=== PATIENT | male | born 1955 | race Caucasian/White ===

== ENCOUNTER 2018-01-27 22:14 | Inpatient (IN) | payer BC ==
[2018-01-27] MEDS ORDERED: NS 0.9% 1000 ML* 1,000 ML IV ONE (22:43)
[2018-01-27] MEDS ORDERED: HYDROmorphone INJ* 2 MG/ML CARPUJECT SYRINGE IV SLOW PU ONE (22:45)
[2018-01-27] MEDS ORDERED: Ondansetron INJ* 2 MG/ML VIAL IV ONE (22:45)
[2018-01-27 23:20] LABS: ABS Basophils 0 10^3/ul (0-0.2); ABS Eosinophils 0.1 10^3/ul (0-0.6); ABS Lymphocytes 0.7 10^3/ul (1.0-4.8); ABS Monocytes 1.1 10^3/ul (0-0.8); ABS Neutrophils 15.1 10^3/ul (1.5-7.7); ABS Nucleated RBC 0 10^3/ul; Eosinophil % 0.5 % (0-6); Hematocrit 42 % (42-52); Hemoglobin 13.8 g/dl (14.0-18.0); Lymphocyte % 4.1 % (25-47); Mean Corpuscular HGB Conc 33 g/dl (31-36); Mean Corpuscular Hemoglobin 28 pg (27-31); Mean Corpuscular Volume 84 fL (80-94); Nucleated Red Blood Cells % 0; Platelet Count 237 10^3/ul (150-450); Red Blood Count 5.01 10^6/ul (4.0-5.4); Red Cell Distribution Width 15 % (10.5-15)
[2018-01-27 23:28] LABS: INR 1.48 (0.77-1.02)
[2018-01-27 23:32] LABS: EGFR Non-African American 63.4 (>60)
[2018-01-27] MEDS ORDERED: Iodixanol* (CONTRAST) 320 MG/ML 100 ML SDV IV ONE (23:39)
[2018-01-28] MEDS ORDERED: Piperacillin/Tazobac ADVAN(*) 3.375 GM in NS 0.9% 100 ML* 100 ML IVPB ONE (01:06)
[2018-01-28] MEDS ORDERED: Benzocaine/Butamben/Tetracain* SPRAY ONE (01:07)
[2018-01-28] MEDS ORDERED: Zosyn 3.375 GM IV - ED ONCE IVPB ONE ×2 (02:00)
[2018-01-28] MEDS ORDERED: Morphine VIAL* 4 MG/ML VIAL (1 ml vial) IV PRN (02:41)
[2018-01-28] MEDS ORDERED: Ondansetron INJ* 2 MG/ML VIAL IV PRN ×2 (03:01→19:13)
--- NOTE | 2018-01-28 03:34 | ED ---
Jerson Pickens Tecjoon, scribed for Emi Vazquez MD on 01/27/18 at 2245 . Abdominal Pain/Male - HPI Summary HPI Summary: This patient is a 62 year old male BIBA to [facility] with a chief complaint of nausea and vomiting since approx. 1600 today. The pain is rated 6/10 in severity. Symptoms aggravated by nothing. Symptoms alleviated by nothing. The patient treated sx with Zofran WINDOW GLAZIER HELPER. Patient additionally reports abd pain, diarrhea, constipation. Patient denies fever. Patient has a hx of colon cancer. - History of Current Complaint Chief Complaint: EDAbdPain Stated Complaint: ABD PAIN/CHEST PRESSURE Time Seen by Provider: 01/27/18 22:27 Hx Obtained From: Patient Onset/Duration: Lasting Hours, Still Present Timing: Constant Severity Currently: Moderate Pain Intensity: 6 Pain Scale Used: 0-10 Numeric Location: Diffuse Aggravating Factor(s): Nothing Alleviating Factor(s): Nothing Associated Signs And Symptoms: Positive: Negative - fever, Other - abd pain, nausea, vomiting, diarrhea, constipation - Allergies/Home Medications Allergies/Adverse Reactions: Allergies Allergy/AdvReac Type Severity Reaction Status Date / Time No Known Allergies Allergy Verified 07/21/15 10:38 PMH/Surg Hx/FS Hx/Imm Hx Previously Healthy: No Endocrine/Hematology History: Denies: Hx Anticoagulant Therapy, Hx Diabetes, Hx Thyroid Disease Cardiovascular History: Reports: Hx Angina, Hx Hypercholesterolemia - not currently, Hx Hypertension Denies: Hx Coronary Artery Disease, Hx Myocardial Infarction, Hx Pacemaker/ ICD, Hx Valvular Heart Disease Respiratory History: Denies: Hx Asthma, Hx Chronic Obstructive Pulmonary Disease (COPD) GI History: Reports: Hx Gastroesophageal Reflux Disease Denies: Hx Cirrhosis, Hx Gall Bladder Disease, Hx Ulcer History: Denies: Hx Renal Disease Musculoskeletal History: Reports: Hx Back Problems Denies: Hx Gout Comment Only: 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 Sensory History: Reports: Hx Contacts or Glasses - reading glasses Opthamlomology History: Reports: Hx Contacts or Glasses - reading glasses Neurological History: Denies: Hx Dementia, Hx Migraine, Hx Seizures, Hx Spinal Cord Injury Psychiatric History: Denies: Hx Substance Abuse - Cancer History Cancer Type, Location and Year: Colon Cancer - Surgical treatment no chemo or radiation Hx Chemotherapy: No Hx Radiation Therapy: No - Surgical History Surgery Procedure, Year, and Place: 2011 colon resection Hx Anesthesia Reactions: No Infectious Disease History: No Infectious Disease History: Denies: Hx Clostridium Difficile, Hx Hepatitis, Hx Human Immunodeficiency Virus (HIV), History Other Infectious Disease, Traveled Outside the [place] in Last 30 Days - Family History Known Family History: Positive: Other - brother bypass surgery (late 60s) - Social History Alcohol Use: Rare Alcohol Amount: 1-2 mix drinks occassionally Hx Substance Use: No Substance Use Type: Reports: None Hx Tobacco Use: Yes Smoking Status (MU): Current Some Day Smoker Type: Cigarettes Have You Smoked in the Last Year: Yes Review of Systems Negative: Fever Positive: Abdominal Pain, Vomiting, Diarrhea, Nausea, Other - constipation All Other Systems Reviewed And Are Negative: Yes Physical Exam - Summary Physical Exam Summary: VITAL SIGNS: Reviewed. GENERAL: Patient is a morbidly obese male who is lying comfortable in the stretcher. Patient is not in any acute respiratory distress. HEAD AND FACE: No signs of trauma. No ecchymosis, hematomas or skull depressions. No sinus tenderness. EYES: PERRLA, EOMI x 2, No injected conjunctiva, no nystagmus. EARS: Hearing grossly intact. Ear canals and tympanic membranes are within normal limits. MOUTH: Oropharynx within normal limits. NECK: Supple, trachea is midline, no adenopathy, no JVD, no carotid bruit, no c- spine tenderness, neck with full ROM. CHEST: Symmetric, no tenderness at palpation LUNGS: Clear to auscultation bilaterally. No wheezing or crackles. CVS: Regular rate and rhythm, S1 and S2 present, no murmurs or gallops appreciated. ABDOMEN: Abd distended. Diffusely tender. Hyperactive bowel sounds. EXTREMITIES: FROM in all major joints, no edema, no cyanosis or clubbing. NEURO: Alert and oriented x 3. No acute neurological deficits. Speech is normal and follows commands. SKIN: Dry and warm Triage Information Reviewed: Yes Vital Signs On Initial Exam: Initial Vitals Temp Pulse Resp BP Pulse Ox 97.8 F 59 18 139/56 95 01/27/18 22:24 01/27/18 22:24 01/27/18 22:24 01/27/18 22:24 01/27/18 22:24 Vital Signs Reviewed: Yes Diagnostics - Vital Signs Vital Signs Temp Pulse Resp BP Pulse Ox 04/02/18 22:24 97.8 F 59 18 139/56 95 - Laboratory Result Diagrams: 01/27/18 22:58 01/27/18 22:58 Lab Statement: Any lab studies that have been ordered have been reviewed, and results considered in the medical decision making process. - CT CT Abd/Pel CT Interpretation: Positive (See Comments) - CT Abd/Pel reveals, per radiologist , IMPRESSION: Small bowel obstruction. Smaller vental hernias. ED physician has reviewed this radiology report. CT Interpretation Completed By: Radiologist - EKG 0316 Cardiac Rate: NL EKG Rhythm: Sinus Rhythm - 67 BPM EKG Interpretation: NSR (67 BPM), t-wave inversion in anteroseptal leads, which is old. Abdominal Pain Fem Course/Dx - Course Course Of Treatment: This patient is a 62 year old male BIBA to [facility] with a chief complaint of nausea and vomiting since approx. [address] Abd/Pel reveals, per radiologist, IMPRESSION: Small bowel obstruction. Smaller vental hernias. ED physician has reviewed this radiology report. An EKG, taken 315, reveals, NSR (67 BPM), t-wave inversion in anteroseptal leads, which is old. Bloodwork Obtained. Urinalysis Obtained. In the ED course the patient was given Hydromophone, Iodixanol, Zofran, Piperacillin. We discussed patient care with Dr. Hansen (Surgery) at 0123 and they agreed to come see the patient. Patient will be admitted to the hospital to Dr. Hansen (Surgery) with a diagnosis of Ventral hernia and small bowel obstruction. The patient is agreeable with this plan. - Diagnoses Provider Diagnoses: Ventral hernia, Small bowel obstruction - Provider Notifications Discussed Care Of Patient With: Cyril Hansen - Surgery Time Discussed With Above Provider: 01:23 - We discussed patient care with Dr. Hansen (Surgery) at 0123 and they agreed to come see the patient. Instructed by Provider To: Admit As Inpatient - to Dr. Hansen (Surgery) Discharge - Sign-Out/Discharge Documenting (check all that apply): Discharge - admitted - Discharge Plan Condition: Stable Disposition: ADMITTED TO [facility] The documentation as recorded by the Jerson coon Tecjoon accurately reflects the service I personally performed and the decisions made by , Emi Vazquez MD.
[2018-01-28] MEDS ORDERED: Metoprolol Tartrate IV* 1 MG/ML 5 ML VIAL IV PRN (03:40)
[2018-01-28] MEDS: NS 0.9% 1000 ML* 1,000 ML IV SCH ×2 (03:42→10:30)
[2018-01-28] MEDS: Pantoprazole IV* 40 MG IV SCH (04:24)
[2018-01-28] MEDS: Insulin REGULAR(*) 1 UNITS UNIT SUBCUT SCH ×3 (05:27→22:53)
[2018-01-28 05:35] LABS: ABS Basophils 0 10^3/ul (0-0.2); ABS Eosinophils 0 10^3/ul (0-0.6); ABS Lymphocytes 0.8 10^3/ul (1.0-4.8); ABS Monocytes 0.7 10^3/ul (0-0.8); ABS Nucleated RBC 0 10^3/ul; Eosinophil % 0.2 % (0-6); Hematocrit 39 % (42-52); Hemoglobin 12.8 g/dl (14.0-18.0); Lymphocyte % 5.5 % (25-47); Mean Corpuscular HGB Conc 33 g/dl (31-36); Mean Corpuscular Hemoglobin 28 pg (27-31); Mean Corpuscular Volume 84 fL (80-94); Nucleated Red Blood Cells % 0.1; Platelet Count 217 10^3/ul (150-450); Red Blood Count 4.62 10^6/ul (4.0-5.4); Red Cell Distribution Width 15 % (10.5-15); White Blood Count 14.6 10^3/ul (3.5-10.8)
[2018-01-28 05:43] LABS: INR 1.3 (0.77-1.02)
[2018-01-28 05:54] LABS: EGFR Non-African American 69.6 (>60)
[2018-01-28 07:44] LABS: Urine Appearance Clear; Urine Blood Negative (Negative); Urine Color Yellow; Urine Ketones Negative (Negative); Urine Protein Negative (Negative); Urine Specific Gravity > 1.060 (1.010-1.030); Urine Urobilinogen Negative (Negative)
--- NOTE | 2018-01-28 08:00 | RAD ---
Indication: Dyspnea. 2 views of the chest demonstrate no mediastinal shift. Heart is enlarged. Hyperinflated lung lu are noted. No evidence of alveolar consolidation is noted. Cardiomegaly is noted. When compared to previous exam of October 13, 2015 no significant change is noted. IMPRESSION: CARDIOMEGALY. NO ACTIVE CARDIOPULMONARY DISEASE IS NOTED.
--- NOTE | 2018-01-28 08:08 | RAD ---
INDICATION: Abdominal pain. COMPARISON: There are no prior studies available for comparison. TECHNIQUE: A CT scan of the abdomen and pelvis was performed with intravenous and oral contrast following intravenous injection of 141 ml of Visipaque 320 nonionic contrast. Contiguous axial sections were obtained from the lung bases through the symphysis pubis. Images were reconstructed in the coronal and sagittal planes. FINDINGS: There is mild dependent bilateral lower lobe subsegmental atelectasis. No pleural effusion is present. The liver and spleen are normal in size without significant focal abnormality. The liver is decreased in attenuation consistent with fatty infiltration. No calcified gallstones are seen. The pancreas appears to be within normal limits. The kidneys and adrenal glands are normal in size. No hydronephrosis is seen. There are couple small 1 to 2 mm calculi within the right kidney. There are focal areas of cortical thinning in the right kidney consistent with scarring. There are small hypodense lesions within both kidneys too small to characterize by CT although likely representing cysts. The prostate gland is moderately enlarged. The aorta is normal in caliber with moderate calcific plaque present. No significant enlarged retroperitoneal lymph nodes are seen. There is a ventral hernia containing dilated loops of small bowel present in the midline causing a moderate grade partial small bowel obstruction. The stomach and proximal small bowel are distended. The distal esophagus is also distended with fluid consistent with reflux and the obstruction. There are additional smaller ventral hernias containing fat. These are located superior to the larger hernia containing small bowel. The patient is status post resection of the ascending and part of the transverse colon. There is mild descending and sigmoid diverticulosis without evidence for diverticulitis. No free intraperitoneal air or fluid is seen. No significant focal osseous abnormality is seen. IMPRESSION: 1. MODERATE GRADE PROXIMAL SMALL BOWEL OBSTRUCTION SECONDARY TO A VENTRAL HERNIA CONTAINING DILATED LOOPS OF SMALL BOWEL. THERE ARE ADDITIONAL SMALLER VENTRAL HERNIAS CONTAINING FAT. 2. SMALL NONOBSTRUCTING RIGHT RENAL CALCULI AND AREAS OF CORTICAL SCARRING IN THE RIGHT KIDNEY. 3. HEPATIC STEATOSIS. 4. STATUS POST PARTIAL COLECTOMY.
--- NOTE | 2018-01-28 08:37 | HP ---
CC: [facility]; Dr. Israel, cardiology; Dr. Henao, [place], [place] * HISTORY AND PHYSICAL: DATE OF : 51 DATE OF SURGERY: 01/28/18 REASON FOR ADMISSION: Ventral incisional hernia with small bowel obstruction. HISTORY OF PRESENT ILLNESS: Mr. Neal Garcia is a 62-year-old gentleman, who is morbidly obese, who presented to the emergency room this evening after being brought by ambulance for complaints of upper abdominal pain with nausea and vomiting. He underwent an open right hemicolectomy five years ago in [place] for a right colon cancer, and has had a ventral incisional hernia there for the last several years which he notices a bulge. He states that over the last several days, the bulge has been somewhat more firm and tender, although he had been eating well and having normal bowel movements. Earlier this morning, he developed some upper abdominal pain, also pain up into the left chest area which was worrisome all day. Later in the afternoon, however, he developed excessive amount of burping and subsequently vomiting. When this persisted and his pain was more severe, he called the ambulance and was brought here to the emergency room. While here in the emergency room, he was noted to be afebrile with stable vital signs. He was noted to have some mild upper abdominal tenderness. His white blood cell count was 17,000; otherwise, his labs were unremarkable including a lactic and C-reactive protein. His BUN and creatinine were normal as well. He underwent a CAT scan of the abdomen and pelvis; I did review these images. These do show a ventral incisional hernia in the lower portion of the upper midline incision containing small bowel. There does appear to be a transition zone at the level of the fascia where there is proximal small bowel dilated and distal small bowel was collapsed. He has undergone a right hemicolectomy in the past. There were no other acute findings. This did not appear to be a closed loop type of obstruction in the hernia itself. A surgical consultation was obtained. PAST MEDICAL HISTORY: 1. Atrial fibrillation. 2. Mild coronary artery disease. 3. Type 2 diabetes. 4. Morbid obesity. 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 6. Gastroesophageal reflux disease. MEDICATIONS: Include 1. Glipizide 10 mg daily. 2. Xarelto 20 mg a day. 3. Omeprazole 40 mg daily. 4. Metoprolol 100 mg daily. 5. Losartan/hydrochlorothiazide one tablet daily. 6. Glucophage 500 mg b.i.d. 7. Lasix 40 mg daily. 8. Atorvastatin 20 mg q.h.s. 9. Aspirin 81 mg daily. 10. Amlodipine 10 mg daily. ALLERGIES: He has no known drug allergies. PAST SURGICAL HISTORY: Open right hemicolectomy for colon cancer done in [place]. I do not have these operative records or pathology results. SOCIAL HISTORY: He lives alone. He is presently not working. He used to be a smoker, but has not completely quit, and may have a cigarette every several days. He drinks alcohol on a very rare social basis. REVIEW OF SYMPTOMS: His colonoscopy was done last year with Dr. Medel and was unremarkable, showing a widely patent anastomosis. Cardiac: He denies chest pain. He does have atrial fibrillation. He had a cardiac catheterization in 2014 which showed minimal noncritical coronary artery disease. Pulmonary: He has had no wheezing or hemoptysis. Does have sleep apnea. GI: Gastroesophageal reflux disease. PHYSICAL EXAMINATION VITAL SIGNS: He is afebrile, temperature 97.8, pulse 63, blood pressure 129/47 , respirations are 15. GENERAL: He is morbidly obese. Height 6 feet 4 inches, weight 330 pounds, BMI 40. In general, he is a well-developed, overweight male who appears to be in no apparent distress. He is quite alert, conversive and pleasant. HEENT: Oral mucosa is somewhat dry. Sclera was anicteric. Trachea was midline. LUNGS: Clear to auscultation with diminished breath sounds at the bases. HEART: Regular rate and rhythm. ABDOMEN: Obese with a rather large pannus below the umbilicus. The upper abdominal wall appears to have a less fat deposition. He has a well-healed midline incision, all above the umbilicus and about a palm's breadth below the xiphoid. The area over the incision is nontender, and I cannot appreciate a fascial defect; however, due to his size, I am not certain whether there is hernia which is present or has it been reduced. This is nontender and there is no overlying skin change or redness. Bowel sounds were hypoactive throughout. EXTREMITIES: No cyanosis or edema. LABORATORY DATA: As mentioned above, laboratory values include a white blood cell count of 17 with hemoglobin of 13.8. INR of 1.48. Electrolytes and BUN and creatinine were within normal limits. Blood sugar 168, lactic acid 1.8, C- reactive protein 7.1. His liver transaminases and bilirubin were unremarkable. I did review the CT scan of the abdomen and pelvis. IMPRESSION: 1. Small bowel obstruction which is due to a long-standing ventral incision hernia status post a right hemicolectomy for colon cancer. His stomach was markedly distended and fluid filled on the CT scan. A nasogastric tube has been inserted; at least a liter of bilious fluid was drained, and he feels much better, having no pain at this point. It is difficult to determine the fascial defect location, and also if the hernia is reducible due to his size. His exam presently is benign and nontender. No evidence of peritoneal irritation. 2. Multiple medical problems as outlined above, including atrial fibrillation. The patient is on Xarelto, but he took his last dose Saturday. PLAN: 1. The patient will be admitted to the surgical service with medical hospitalist consultation and possible cardiology consultation. 2. A nasogastric tube has been inserted and this will be placed to low-wall suction, and he will be kept n.p.o. 3. Medical consultation for management of his medications. Also, formal risk assessment for surgery. 4. I reviewed with him the findings on the CAT scan; and, in combination with his clinical presentation, I feel that this will require a laparotomy for complete reduction of the ventral incisional hernia and lysis of adhesions with hernia repair this admission to optimally manage the bowel obstruction. At this point, I do not believe that he has signs of ischemia or has an internal hernia. We will allow for NG tube decompression, IV hydration, and medical evaluation, and plan for surgery sometime Saturday01/28/18. [id number]/[facility] #: [id number] COLLEEN
--- NOTE | 2018-01-28 09:20 | CONS ---
CC: Dr. Shaquille Henao. * CONSULTATION REPORT: DATE OF CONSULT: 01/28/18 TIME OF EVALUATION: 0300. PRIMARY CARE PHYSICIAN: Dr. Shaquille Henao. REASON FOR CONSULTATION: Medical management and evaluation for preoperative evaluation. CHIEF COMPLAINT: Abdominal pain. HISTORY OF PRESENT ILLNESS: This is a 62-year-old male with a past medical history of morbid obesity and diabetes who presents to the emergency room with abdominal pain and indigestion that started yesterday after he had a late lunch around 3 p.m. He has been having persistent nausea, vomiting. He states he has been feeling like he needed to have bowel movements, but only having small amount of stools and they have been watery. In the emergency room, he was found to have a small bowel obstruction secondary to an incisional hernia. Dr. Hansen was called and he is admitting him and plans to do surgery later today and would like a Medicine evaluation. The patient denies any chest pain, no shortness of breath. He states he had a stress test many years ago; he is not sure how long ago. 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 He states he often has to sit down due to his back pain. He goes up and down a flight of stairs without any chest pain or shortness of breath. The patient, in the emergency room, had labs and imaging. He was given a liter of normal saline, Zosyn, Zofran, Dilaudid, and had an NG tube placed, and was admitted under the surgical service. PAST MEDICAL HISTORY: 1. History of colon cancer, status post resection in 2011. 2. Atrial fibrillation, on Xarelto, followed by Dr. Israel. 3. History of nonobstructive coronary artery disease. 4. Diabetes. 5. Morbid obesity. 6. Obstructive sleep apnea, noncompliant, has CPAP. 7. History of ventral hernia. 8. GERD. 9. Hypertension. MEDICATIONS: 1. Metformin 500 mg p.o. b.i.d. 2. Xarelto 20 mg p.o. daily. 3. Atorvastatin 20 mg daily. 4. Glipizide 10 mg daily. 5. Metoprolol XL 25 mg daily. 6. Omeprazole 40 mg daily. 7. Aspirin 81 mg daily. 8. Losartan 50 mg daily. 9. Amlodipine 10 mg daily. 10. Lasix 40 mg daily. ALLERGIES: No known drug allergies. SOCIAL HISTORY: The patient is on disability due to his back pain. He used to work at [employer], now he owns horses; and, as mentioned, works in cleaning the stables. He does smoke about a pack over a month, for the past 40 years. Rare alcohol use. Healthcare proxy is his sister, Chelsea, and daughter, Mya Garcia. CODE STATUS: Full code. REVIEW OF SYSTEMS: A 14-point review of systems as mentioned in the HPI, otherwise negative. FAMILY HISTORY: No family history of early coronary artery disease. PHYSICAL EXAM: Vitals: Temp 97.8, pulse rate 66, respiratory rate 15, oxygen saturation 95% on room air, blood pressure 129/47. General: No acute distress , resting comfortably. HEENT: Head, normocephalic. Pupils are equal and reactive. Oropharynx: Mucous membranes moist. NG tube in place. Cardiac: Regular rate and rhythm. Soft, systolic murmur heard throughout. Respiratory: Diminished breath sounds. No wheeze, rhonchi, or rales. No increased work of breathing. Abdomen: Morbidly obese, tenderness in the right lower quadrant. No rebound or guarding. Extremities: Trace pretibial edema. +1 DPs. Neurologic: Alert and oriented x3. No focal neurologic deficits. DIAGNOSTIC STUDIES/LAB DATA: White count 17, hemoglobin 13.8, hematocrit 42, and platelets 237. INR 1.48. Sodium 140, potassium 4.4, chloride 103, bicarb 27, BUN 23, creatinine 1.16, glucose 167. CRP is 7, mag is 1.9. Radiographic data: EKG shows inverted T-waves in the lateral leads, unchanged from prior EKGs. Chest x-ray, wet read unremarkable. ASSESSMENT AND PLAN: This is a 62-year-old male with a past medical history of atrial fibrillation, on anticoagulation, diabetes and morbid obesity who presents to the emergency room with nausea, vomiting and abdominal pain, found to have a bowel obstruction secondary to an incisional hernia. The patient is being evaluated for surgery and hospitalist service consulted for medication management and preoperative evaluation. The patient's revised cardiac risk index is a 1, which is 1% to 1.3% chance of mortality and morbidity. There is no contraindication with proceeding with surgery. He last took his Xarelto dose on the evening of the first. His INR is slightly elevated. I would recommend repeating that in the morning; did continue to hold his Xarelto and his aspirin. We will order a chest x-ray in the setting of his tobacco history, and recommend incentive spirometer postoperatively. Regarding his hypertension, his blood pressures are currently well controlled. We will order a Lopressor IV as needed in the setting of being n.p.o. Regarding his diabetes, we will place him on a lispro sliding scale while he is n.p.o. and check hemoglobin A1C. He has been resumed on IV Protonix while he is n.p.o. as well. DVT prophylaxis per Surgery's recommendation; he does score moderate risk. Code status, full code. TIME SPENT: Greater than 45 minutes spent doing this consultation, more than half the time spent in direct patient contact. [id number]/[facility] #: [id number] COLLEEN
[2018-01-28] MEDS ORDERED: Bupivacaine 0.25% SDV* 30 ML ONE (13:45)
[2018-01-28] MEDS ORDERED: Sodium Citrate/Citric Acid* 15 ML UDC PO ONE (13:49)
[2018-01-28] MEDS ORDERED: ceFAZolin 1 GM in Dextrose (*) 1 GM/50 ML BAG IVPB ONE (13:55)
[2018-01-28] MEDS ORDERED: Sodium Citrate/Citric Acid* 15 ML UDC ONE (13:55)
[2018-01-28] MEDS ORDERED: ceFAZolin 2 GM PREMIX (*) 2 GM/50 ML BAG IVPB ONE (13:55)
[2018-01-28] MEDS ORDERED: Lidocaine 4% TOPICAL* 50 ML TOP.SOLN ONE (14:05)
[2018-01-28] MEDS ORDERED: Lidocaine 1%* 5 ML VIAL ONE (14:06)
[2018-01-28] MEDS ORDERED: fentaNYL* 50 MCG/ML 5 ML VIAL (250 MCG VIAL) ONE (14:12)
[2018-01-28] MEDS ORDERED: Glycopyrrolate IV* 0.2 MG/ML 1 ML VIAL ONE ×2 (14:12→18:04)
[2018-01-28] MEDS ORDERED: Midazolam* 1 MG/ML 5 ML VIAL (5 MG) ONE (14:12)
[2018-01-28] MEDS ORDERED: Propofol* 10 MG/ML 20 ML BTL IV PUSH ONE (14:12)
[2018-01-28] MEDS ORDERED: Rocuronium* 10 MG/ML VIAL ONE ×2 (14:14→16:57)
[2018-01-28] MEDS ORDERED: EPHEDrine (Pressors)* 50 MG/ML VIAL ONE (15:17)
[2018-01-28] MEDS ORDERED: fentaNYL* 50 MCG/ML 2 ML VIAL (100 MCG VIAL) ONE ×4 (15:45→19:33)
--- NOTE | 2018-01-28 15:49 | PN ---
Hospitalist Progress Note Date of Service: 01/28/18 HOSPITALIST ADDENDUM Mr. Garcia is a 62yo M with PMH of colon CA s/p resection, CAD, Afib, DM, morbid obesity, HALI, GERD, HTN, ventral hernia, who presented to ED with c/o abdominal pain, found to have SBO secondary to his incisional hernia. Continue pre op management as outlined on Dr. Pathak's consultation. Hospitalist service will continue to follow with you.
[2018-01-28] MEDS ORDERED: Acetaminophen IV 1GM/100ML * 1,000 MG/100 ML VIAL IVPB ONE (16:28)
[2018-01-28] MEDS ORDERED: PROCHLORPERAZINE INJ 5 MG/ML 2 ML VIAL IV PRN (16:28)
[2018-01-28] MEDS ORDERED: Naloxone* 0.4 MG/ML 1 ML VIAL IV PRN (16:28)
[2018-01-28] MEDS ORDERED: Ondansetron INJ* 2 MG/ML VIAL ONE (17:22)
[2018-01-28] MEDS ORDERED: Neostigmine Methylsulfate* 1 MG/ML 10 ML VIAL (1 mg/ml) ONE (18:04)
[2018-01-28] MEDS ORDERED: Labetalol IV* 5 MG/ML 20 ML VIAL ONE ×2 (18:07→20:34)
[2018-01-28] MEDS ORDERED: Naloxone* 0.4 MG/ML 1 ML VIAL IV PUSH PRN (18:20)
[2018-01-28] MEDS ORDERED: Acetaminophen IV 1GM/100ML * 100 ML ONE (18:29)
[2018-01-28] MEDS ORDERED: Ketorolac INJ* 30 MG/ML 1 ML VIAL ONE (19:03)
[2018-01-28] MEDS: fentaNYL* 50 MCG/ML 2 ML VIAL (100 MCG VIAL) IV PRN ×4 (19:14→20:05)
[2018-01-28] MEDS ORDERED: HYDROmorphone PCA* 20 MG/20 ML PCA.SYRING PCA SCH (20:00)
[2018-01-28] MEDS ORDERED: HYDROmorphone PCA* 20 MG/20 ML PCA.SYRING ONE (20:00)
[2018-01-28] MEDS: Heparin VIAL(*) 5000 UNITS/ML VIAL (FIVE THOUSAND) SUBCUT SCH (23:09)
[2018-01-29] MEDS: Insulin REGULAR(*) 1 UNITS UNIT SUBCUT SCH ×3 (00:23→12:05)
[2018-01-29] MEDS: Ketorolac INJ* 30 MG/ML 1 ML VIAL IV SCH ×4 (01:48→19:22)
[2018-01-29] MEDS: Pantoprazole IV* 40 MG IV SCH (04:06)
[2018-01-29 05:43] LABS: INR 1.18 (0.77-1.02)
[2018-01-29 05:55] LABS: EGFR Non-African American 83.9 (>60)
[2018-01-29] MEDS: Heparin VIAL(*) 5000 UNITS/ML VIAL (FIVE THOUSAND) SUBCUT SCH ×3 (05:57→22:49)
[2018-01-29] MEDS ORDERED: oxyCODONE/Acetamin 5/325 MG* TAB PO PRN (11:05)
[2018-01-29] MEDS ORDERED: Acetaminophen TAB* 325 MG PO PRN (11:05)
--- NOTE | 2018-01-29 14:36 | PN ---
Subjective Date of Service: 01/29/18 Interval History: HOSPITALIST PROGRESS NOTE Patient seen and examined at bedside. He feels well today. Pain is controlled, tolerating clear liquids with no N/V. No BM or flatus. Family History: Unchanged from Admission Social History: Unchanged from Admission Past Medical History: Unchanged from Admission Objective Active Medications: Acetaminophen (Tylenol Tab*) 650 mg PO Q4H PRN PRN Reason: mild pain Heparin Sodium (Porcine) (Heparin Vial(*)) 5,000 units SUBCUT Q8HR [facility] Last Admin: 01/29/18 13:16 Dose: 5,000 units Lactated Ringer's (Lactated Ringers 1000 Ml Bag*) 1,000 mls @ 175 mls/hr IV PER RATE [facility] Last Admin: 01/29/18 13:16 Dose: 175 mls/hr Hydromorphone HCl (Dilaudid Automotive Specialty Technician*) 20 mg in 20 mls @ 0 mls/hr SCALE OPERATOR .change Q24H [facility]; Per Protocol PRN Reason: Protocol Last Admin: 01/28/18 20:01 Dose: 0.2 mls/hr Insulin Human Regular (Insulin Regular(*)) 0 units SUBCUT Q6HR [facility] PRN Reason: Protocol Last Admin: 01/29/18 12:05 Dose: Not Given Ketorolac Tromethamine (Toradol Inj*) 30 mg IV Q6H [facility] Stop: 01/30/18 19:00 Last Admin: 01/29/18 13:16 Dose: 30 mg Metoprolol Tartrate (Lopressor Iv*) 5 mg IV Q6H PRN PRN Reason: BLOOD PRESSURE Naloxone HCl (Narcan*) 0.08 mg IV PUSH Q2M PRN PRN Reason: SEDATION (RR<8 &/OR PT UNRESP) Ondansetron HCl (Zofran Inj*) 4 mg IV Q4H PRN PRN Reason: NAUSEA/VOMITING Oxycodone/Acetaminophen (Percocet 5/325 Tab*) 1 tab PO Q4H PRN PRN Reason: moderate pain Oxycodone/Acetaminophen (Percocet 5/325 Tab*) 2 tab PO Q4H PRN PRN Reason: moderately severe pain Pantoprazole Sodium (Protonix Iv*) 40 mg IV Q24H [facility] Last Admin: 01/29/18 04:06 Dose: 40 mg Vital Signs - 8 hr 01/29/18 01/29/18 01/29/18 11:37 12:00 13:34 Temperature 99.1 F Pulse Rate 80 Respiratory 20 18 16 Rate Blood Pressure 142/58 (mmHg) O2 Sat by Pulse 95 97 96 Oximetry Oxygen Devices in Use Now: Nasal Cannula Appearance: Morbid obese male sitting up in bed in NAD. Eyes: No Scleral Icterus Ears/Nose/Mouth/Throat: Mucous Membranes Moist Neck: Trachea Midline Respiratory: Symmetrical Chest Expansion and Respiratory Effort, - - BS+ bilaterally decreased in bases Cardiovascular: RRR - Normal S1 and S2 Neurological: Alert and Oriented x 3 Result Diagrams: 01/28/18 04:53 01/29/18 05:02 Assess/Plan/Problems-Billing Assessment: Mr. Garcia is a 62yo M with PMH of morbid obesity with BMI 40, Afib, CAD, DM, GERD, colon CA s/p resection (Pratt syndrome), HALI, who presented to ED with c/ o abdominal pain, found to have SBO secondary to ventral hernia. Hospitalist service consulted for management of comorbidities. - Patient Problems (1) SBO (small bowel obstruction) Comment: - Management as per surgery. (2) Type 2 diabetes mellitus Comment: - Glucose controlled. - Continue FS with Lispro SS. (3) Atrial fibrillation Comment: - Sounds regular on PE and EKG showed NSR. - Will resume Xarelto when okay with surgery and Metoprolol when able to take PO. (4) CAD (coronary artery disease) Comment: - Stable. - Will resume Aspirin, Metoprolol, Atorvastatin when able to take PO meds. (5) DVT prophylaxis Comment: - SQ heparin. (6) Full code status Status and Disposition: Hospitalist service will continue to follow with you.
[2018-01-29] MEDS ORDERED: Dextrose 50% Syringe 50 ML* 25 GM/50 ML SYRINGE IV PUSH PRN (14:38)
--- NOTE | 2018-01-29 15:14 | OP ---
CC: Shaquille Henao MD * DATE OF OPERATION: 01/28/18 - ROOM #333 DATE OF : 51 SURGEON: Dm Cornejo MD ASSISTANTS: 1. Shaquille Gill MD 2. Malinda Lance NP ANESTHESIOLOGIST: Yovani Armijo MD ANESTHESIA: General endotracheal. PRE-OP DIAGNOSIS: Ventral incisional hernia with small-bowel obstruction. POST-OP DIAGNOSIS: Ventral incisional hernia with small-bowel obstruction. OPERATIVE PROCEDURE: Open reduction and repair of incarcerated ventral incisional hernia with laparoscopic placement of intraperitoneal mesh. ESTIMATED BLOOD LOSS: 50 mL. IV FLUIDS: 2.3 L crystalloid. SPECIMEN: Hernia sac. DRAINS: 7-mm Rian-Lewis in the subcutaneous tissues. COMPLICATIONS: None. COUNTS: Instrument, needle, sponge counts were correct. DESCRIPTION OF PROCEDURE: The patient was brought to the operating room and placed on table supine. Sequential compression devices were placed on both lower extremities. General anesthesia was administered. He was administered appropriate intravenous antibiotics, prepped and draped in the usual sterile fashion. Time-out was performed. Midline incision was created through the previous upper midline scar. Subcutaneous tissues were divided with combination of cautery and sharp dissection to enter a hernia sac with incarcerated portions of omental fat, which were taken down using combination of sharp dissection and cautery. There was a defect of approximately 6 x 6 cm in the lower portion of the upper midline wound as well as a small defect in the umbilical side and multiple smaller defects ranging from 1-cm to 4-cm defect that was at the superior aspect of the incision. In order to complete the repair, it was determined that primary closure of the large defect would be performed and then intraperitoneal mesh placement will be performed laparoscopically. After completing adhesiolysis of the contents from the sac, the sac was excised with cautery. The defect was closed with interrupted #1 Prolene suture in figure-of-8 fashion in simple interrupted fashion. Prior to tying down the sutures, a piece of Ventralight mesh with Echo positioning system was placed intraperitoneally. This was an 8 x 10 inch piece of mesh. After tying down the sutures, a 5-mm trocar, which had previously been placed in the left abdomen was used to insufflate the abdomen and then additional 5-mm trocars were placed, one additional in the left side of the abdomen and two additional in the right side of abdomen. The mesh had been prepared with 4 sutures of 0 Ethibond at the 4 mid points of the mesh and these were drawn up through the abdominal wall using an Endo Close device to position the mesh, centering it over the defect as well as with the use of the Echo positioning system. The mesh was then secured with a series of CapSure tacks that were placed in the double-crown fashion, 1-cm interval circumferentially for the outer layer and interspersed within the inner layer. Additional tacks to decrease any space. The mesh appeared to be in good position. The positioning system was cut and removed and hemostasis was assured. The midline wound was irrigated and closed in layers with 3-0 Vicryl to the subcutaneous tissue. Prior to this, a 7-mm Rian-Lewis drain was placed through the separate stab wound incision, brought out the right side and placed into the area of a large subcutaneous space where the sac had been. Subsequently, the wounds were closed with tayo. Dressings were applied. The patient tolerated the procedure well, was extubated, and transferred to Recovery in stable condition. [id number]/[facility] #: [id number] COLLEEN
[2018-01-29] MEDS: Insulin LISPRO* 1 UNITS UNIT SUBCUT SCH (17:55)
--- NOTE | 2018-01-29 18:23 | PN ---
Progress Note - Progress Note Date of Service: 01/29/18 Note: Surgery Progress: S: POD #1. Patient seen earlier this a.m., ~ 1000. At that time, pain controlled w/ TUNE UP MECHANIC and toradol (mostly hurts when he gets up to move). Denies N/ V. Feels some "rumbling". No flatus or BM. Would like Herrera out. O: Vital Signs - 8 hr 01/29/18 01/29/18 01/29/18 11:37 12:00 13:34 Temperature 99.1 F Pulse Rate 80 Respiratory 20 18 16 Rate Blood Pressure 142/58 (mmHg) O2 Sat by Pulse 95 97 96 Oximetry 01/29/18 01/29/18 15:09 16:00 Temperature 97.9 F Pulse Rate 72 Respiratory 16 18 Rate Blood Pressure 160/70 (mmHg) O2 Sat by Pulse 97 96 Oximetry Intake and Output Last 24 Hours 01/27/18 01/28/18 01/29/18 01/30/18 06:59 06:59 06:59 06:59 Intake Total 75 4991 2130 Output Total 175 2605 385 Balance -100 2386 1745 Weight 330 lb Intake: IV Fluids 4631 980 ANCEF 3GMS 100 LR 3551 980 NS (0.9%) 980 Oral 75 360 1150 Output: NG Tube Drainage Amount 175 1150 EZEQUIEL #1 160 60 Urine 0 750 Herrera 545 325 Other: # Bowel Movements 0 Gen: NAD Heart: reg Lungs: clear Abd: midline dsg w/ mod amt sang drainage; no sig drainage at lap sites; BS normoactive; soft; no sig tenderness to palp; Binder in place; EZEQUIEL: serosang Extr: no edema A: s/p combination open/laparoscopic repair incarcerated ventral hernia, doing well P: d/c NG and Herrera; clear liq diet; po pain meds. Adv diet and resume usual meds when further GI fct.
[2018-01-30] MEDS: Ketorolac INJ* 30 MG/ML 1 ML VIAL IV SCH ×2 (01:32→07:50)
[2018-01-30] MEDS: Pantoprazole IV* 40 MG IV SCH (04:02)
[2018-01-30 05:43] LABS: EGFR Non-African American 93.3 (>60)
[2018-01-30] MEDS: Heparin VIAL(*) 5000 UNITS/ML VIAL (FIVE THOUSAND) SUBCUT SCH ×3 (06:24→21:05)
[2018-01-30] MEDS: Insulin LISPRO* 1 UNITS UNIT SUBCUT SCH ×3 (07:50→17:36)
[2018-01-30] MEDS ORDERED: Magnesium Sulfate 2 GM IV* 2 GM/50 ML BAG IVPB ONE (08:00)
[2018-01-30] MEDS ORDERED: KCL 10 MEQ/50 ML IVPREMIX* 10 MEQ/50 ML BAG IV SCH (08:00)
[2018-01-30] MEDS ORDERED: Ibuprofen TAB* 600 MG PO PRN (08:22)
[2018-01-30] MEDS ORDERED: HYDROmorphone INJ* 2 MG/ML CARPUJECT SYRINGE IV SLOW PU PRN ×2 (08:27→08:28)
[2018-01-30] MEDS ORDERED: Potassium Chloride IV* 30 MEQ in NS 0.9% 250 ML* 250 ML IVPB ONE (08:30)
--- NOTE | 2018-01-30 09:20 | PN ---
Progress Note - Progress Note Date of Service: 01/30/18 Note: Surgery Progress: S: POD #2. Feeling better. Less pain. Mir clears; would like to advance. No flatus or BM, though feels gas moving. Ambulating. No SOB (did have decreased sats overnight, which he attributes to his untreated HALI). O: Vital Signs - 8 hr 01/30/18 01/30/18 01/30/18 01:39 02:38 04:08 Temperature Pulse Rate 77 Respiratory 15 18 Rate Blood Pressure (mmHg) O2 Sat by Pulse 95 94 96 Oximetry 01/30/18 01/30/18 01/30/18 04:13 06:28 07:17 Temperature 98.0 F 98.1 F Pulse Rate 76 73 Respiratory 16 16 18 Rate Blood Pressure 180/61 167/62 (mmHg) O2 Sat by Pulse 100 96 97 Oximetry 01/30/18 01/30/18 07:41 07:42 Temperature Pulse Rate Respiratory 18 18 Rate Blood Pressure (mmHg) O2 Sat by Pulse 95 95 Oximetry Intake and Output Last 24 Hours 01/28/18 01/29/18 01/30/18 01/31/18 06:59 06:59 06:59 06:59 Intake Total 75 4991 7803 Output Total 175 2605 1705 Balance -100 2386 6098 Weight 330 lb Intake: IV Fluids 4631 3843 ANCEF 3GMS 100 LR 3551 3843 NS (0.9%) 980 Oral 75 360 3960 Output: NG Tube Drainage Amount 175 1150 EZEQUIEL #1 160 120 Urine 0 750 1260 Herrera 545 325 Other: Estimated Void Medium # Bowel Movements 0 0 Gen: sitting up in chair; NAD Heart: reg Lungs: clear Abd: midline incision w/ mod amt serosang drainage; EZEQUIEL w/ serous drainage; +BS; soft; min tenderness to palp; other lap sites ok Extr: no edema Labs: Laboratory Tests 01/29/18 01/29/18 01/29/18 05:50 11:55 16:49 Potassium Glucose POC Glucose (mg/dL) 141 H 141 H 133 H Magnesium 01/30/18 04:52 Potassium 3.4 L Glucose 133 H POC Glucose (mg/dL) Magnesium 1.8 L A: s/p repair incarc ventral hernia, doing well P: adv diet; po meds; hypomagnesmia and hypokalemia addressed by Dr. Ferguson; anticipate d/c home 01/31 (will d/w Dr. Cornejo; also re: resuming Xarelto).
[2018-01-30] MEDS: Aspirin EC TAB* 81 MG TAB.EC PO SCH (09:37)
[2018-01-30] MEDS: oxyCODONE/Acetamin 5/325 MG* TAB PO PRN ×2 (09:38→13:48)
[2018-01-30] MEDS: Metoprolol Succinate XL TAB* 25 MG PO SCH ×2 (09:38→21:04)
[2018-01-30] MEDS: Losartan TAB* 25 MG PO SCH (09:38)
[2018-01-30] MEDS: Omeprazole CAP* 20 MG PO SCH (09:39)
[2018-01-30] MEDS ORDERED: NS 0.9% 250 ML* 250 ML ONE (11:53)
--- NOTE | 2018-01-30 15:53 | PN ---
Hospitalist Progress Note Date of Service: 01/30/18 HOSPITALIST ADDENDUM Patient continues to make progress post op. Tolerating clear liquids. BP and glucose are controlled. If diet advanced, my resume his outpatient medications. Resume Xarelto as soon as surgery thinks it's okay. Hospitalist service will sign off. Please don't hesitate to call us with questions.
[2018-01-31] MEDS: oxyCODONE/Acetamin 5/325 MG* TAB PO PRN ×2 (00:42→07:35)
[2018-01-31 05:06] LABS: ABS Basophils 0 10^3/ul (0-0.2); ABS Eosinophils 0.2 10^3/ul (0-0.6); ABS Lymphocytes 1.1 10^3/ul (1.0-4.8); ABS Monocytes 0.5 10^3/ul (0-0.8); ABS Neutrophils 4.7 10^3/ul (1.5-7.7); ABS Nucleated RBC 0 10^3/ul; Eosinophil % 2.8 % (0-6); Hematocrit 32 % (42-52); Hemoglobin 10.5 g/dl (14.0-18.0); Mean Corpuscular HGB Conc 33 g/dl (31-36); Mean Corpuscular Hemoglobin 28 pg (27-31); Mean Corpuscular Volume 84 fL (80-94); Mean Platelet Volume 7.7 um3 (7.4-10.4); Nucleated Red Blood Cells % 0; Platelet Count 162 10^3/ul (150-450); Red Blood Count 3.76 10^6/ul (4.0-5.4); Red Cell Distribution Width 15 % (10.5-15); White Blood Count 6.4 10^3/ul (3.5-10.8)
[2018-01-31] MEDS: Heparin VIAL(*) 5000 UNITS/ML VIAL (FIVE THOUSAND) SUBCUT SCH (05:58)
[2018-01-31 07:33] VITALS: BP 168/76
[2018-01-31] MEDS: Metoprolol Succinate XL TAB* 25 MG PO SCH (07:36)
[2018-01-31] MEDS: Omeprazole CAP* 20 MG PO SCH (07:36)
[2018-01-31] MEDS: Aspirin EC TAB* 81 MG TAB.EC PO SCH (07:36)
[2018-01-31] MEDS: Losartan TAB* 25 MG PO SCH (07:37)
[2018-01-31] MEDS: Insulin LISPRO* 1 UNITS UNIT SUBCUT SCH (08:18)
--- NOTE | 2018-01-31 09:11 | PN ---
Progress Note - Progress Note Date of Service: 01/31/18 SOAP: Subjective:POD #3 s/p laparotomy repair of ventral hernia and laparoscopic placement of mesh;less pain,passing flatus,bessy advancing diet,wants to go home [] Objective:afeb,VSS;lungs:clear bilat;heart:RRR;abd:+bs,obese;midline incision intact with tayo,minimal serosang drainage,no erythema;EZEQUIEL drain removed with ease,exit site redressed with gauze pad;4x4's replaced over midline incision;ext :SCDs on [] Assessment:making good postop progress [] Plan:Discharge home today per Dr Cornejo;instructions reviewed;followup in office 1 week;resume Xarelto;RX for opioid sent []
--- NOTE | 2018-01-31 11:18 | DS ---
AMENDED REPORT NOW INCLUDES COSIGNER DESIGNATION - ESIGNED BEFORE ADJUSTMENTS CC: Dr. Henao * DISCHARGE SUMMARY: DATE OF ADMISSION: 01/27/18 DATE OF DISCHARGE: 01/31/18 ATTENDING PHYSICIAN: Dr. Dm Cornejo.* (DICTATED BY LOLA DAN NP) HOSPITAL COURSE: The patient is a 62-year-old morbidly obese male who presented to the emergency room on 01/27/18 with abdominal pain associated with nausea and vomiting; he has a longstanding history of ventral incisional hernia, status post right hemicolectomy for colon cancer. He had an elevated white blood count at 17 and a CAT scan of the abdomen and pelvis revealed an incarcerated ventral incisional hernia with small bowel obstruction. He has multiple medical problems including morbid obesity, atrial fibrillation, mild coronary artery disease, type 2 diabetes mellitus, GERD, and colon cancer with Pratt syndrome. Hospitalist consult was ordered for medical management and he was initially treated with nasogastric decompression and IV hydration. He was taken to the OR by Dr. Cornejo on 01/28/18, for open reduction and repair of incarcerated ventral incisional hernia with laparoscopic placement of intraperitoneal mesh. He has done well postoperatively and as of the morning of discharge was tolerating a consistent carbohydrate diet, pain was well controlled. He was voiding large amounts and passing flatus. PHYSICAL EXAMINATION: Vital Signs: Temp max 98.7, blood pressure 168/76, pulse 63 and regular, respiratory rate 20, O2 saturation 91% to 95%. He does have history of untreated obstructive sleep apnea. General: No acute distress , sitting up at the edge of the bed, eating breakfast. Lungs: Breath sounds bilaterally clear and equal. Heart: Regular rate and rhythm. No murmurs or rubs. Abdomen: Massively obese, active bowel sounds. Midline incision intact with surgical tayo. Moderate amount of serosanguineous drainage. No surrounding erythema; Rian-Lewis drain was removed with ease and 4x4s covered the exit site; all of the other laparoscopic sites were intact with surgical tayo, clean, and dry, no erythema. His abdomen is soft. Extremities : No significant edema. No skin ulcerations. IMPRESSION: Postop day 3 status post open reduction and repair of incarcerated ventral incisional hernia with laparoscopic placement of intraperitoneal mesh, doing very well. PLAN: Discharge home today. He will resume his usual Xarelto and all of his home medications; he will follow his usual consistent carbohydrate diet; he has an appointment in our office for followup on 02/06/18; all of his discharge instructions were reviewed and questions were answered; a prescription for oxycodone/acetaminophen was electronically transmitted to [facility] on [facility]. LOLA DAN, CORDUROY CUTTER OPERATOR [id number]/[facility] #: [id number] COLLEEN
== END 2018-01-31 11:25 | disposition home or self-care (01) | DRG 227 ==
LOC: ED 22:14 → SSU 01-28 02:37 → OBSVTOIN 01-29 11:04
PROVIDERS: ADMIT Surgery; ATTEND Internal Medicine
PROC: 0D9670Z Drainage of Stomach with Drainage Device, Via Natural or Artificial Opening (ICD-10-PCS; principal; 2018-01-28 12:30)
PROC: 0WUF0JZ Supplement Abdominal Wall with Synthetic Substitute, Open Approach (ICD-10-PCS; 2018-01-29)
DX: K43.0 Incisional hernia with obstruction, without gangrene (principal); Z68.41 Body mass index [BMI] 40.0-44.9, adult; E78.00 Pure hypercholesterolemia, unspecified; I10 Essential (primary) hypertension; K21.9 Gastro-esophageal reflux disease without esophagitis; F17.210 Nicotine dependence, cigarettes, uncomplicated; E66.01 Morbid (severe) obesity due to excess calories; I48.91 Unspecified atrial fibrillation; I25.10 Atherosclerotic heart disease of native coronary artery without angina pectoris; E11.9 Type 2 diabetes mellitus without complications; G47.33 Obstructive sleep apnea (adult) (pediatric); E87.6 Hypokalemia; E83.42 Hypomagnesemia; M54.9 Dorsalgia, unspecified; Z72.89 Other problems related to lifestyle; Z79.01 Long term (current) use of anticoagulants; Z90.49 Acquired absence of other specified parts of digestive tract; Z85.038 Personal history of other malignant neoplasm of large intestine; Z79.82 Long term (current) use of aspirin; Z79.84 Long term (current) use of oral hypoglycemic drugs
CPT/HCPCS: 36415; 71046; 74177; 80048; 80053; 81003; 82150; 83036; 83605; 83690; 83735; 85025; 85610; 85730; 86140; 88302; 93005; 99285; A9270-GY; C1781; G0378; J0690; J1170; J1644; J1885; J2250; J2405; J2543; J2704; J2710; J3010; J3475; J3480; Q9967

== ENCOUNTER 2018-11-23 10:04 | Inpatient (IN) | payer BC, MEDICARE, OTHER ==
--- NOTE | 2018-11-23 10:37 | ED ---
Palpitations / Dysrhythmia - HPI Summary HPI Summary: This patient is a 63 year old M presenting to [facility] after he states he went in to Afib last night twice. He states it started last night at 2300, has been waxing and waning since, and he does take medication for his Afib. The patient rates the pain 0/10 in severity. Patient reports chest discomfort and SOB. Patient denies n/v/d and dizziness. He states he does have a history of afib. The patient did have a catch in 2014. He sees Dr. Israel for cardiology. He denies etoh use. - History of Current Complaint Chief Complaint: EDChestPainROMI Time Seen by Provider: 11/23/18 10:13 Hx Obtained From: Patient Onset/Duration: Lasting Hours, Still Present Timing: Intermittent Episodes Lasting: - waxing and waning Severity Initially: Moderate Severity Currently: Severe Character: Fast, Irregular Associated Signs & Symptoms: Chest Pain, Shortness of Breath - Allergy/Home Medications Allergies/Adverse Reactions: Allergies Allergy/AdvReac Type Severity Reaction Status Date / Time No Known Allergies Allergy Verified 11/23/18 10:16 PMH/Surg Hx/FS Hx/Imm Hx Endocrine/Hematology History: Denies: Hx Anticoagulant Therapy, Hx Diabetes, Hx Thyroid Disease Cardiovascular History: Reports: Hx Angina, Hx Hypertension Denies: Hx Coronary Artery Disease, Hx Hypercholesterolemia, Hx Myocardial Infarction, Hx Pacemaker/ICD, Hx Valvular Heart Disease Respiratory History: Reports: Hx Sleep Apnea - been off CPAP machine for 6 months Denies: Hx Asthma, Hx Chronic Obstructive Pulmonary Disease (COPD) GI History: Reports: Hx Gastroesophageal Reflux Disease Denies: Hx Cirrhosis, Hx Gall Bladder Disease, Hx Ulcer History: Denies: Hx Renal Disease Musculoskeletal History: Reports: Hx Back Problems Denies: Hx Gout Comment Only: 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 Sensory History: Reports: Hx Contacts or Glasses - reading glasses Denies: Hx Hearing Aid Opthamlomology History: Reports: Hx Contacts or Glasses - reading glasses Neurological History: Denies: Hx Dementia, Hx Migraine, Hx Seizures, Hx Spinal Cord Injury Psychiatric History: Denies: Hx Substance Abuse - Cancer History Cancer Type, Location and Year: Colon Cancer - Surgical treatment no chemo or radiation Hx Chemotherapy: No Hx Radiation Therapy: No - Surgical History Surgery Procedure, Year, and Place: 2012 colon resection Hx Anesthesia Reactions: No Infectious Disease History: No Infectious Disease History: Denies: Hx Clostridium Difficile, Hx Hepatitis, Hx Human Immunodeficiency Virus (HIV), History Other Infectious Disease, Traveled Outside the [place] in Last 30 Days - Family History Known Family History: Positive: Non-Contributory Negative: Seizure Disorder - Social History Alcohol Use: Rare Alcohol Amount: 1-2 mix drinks occassionally Hx Substance Use: No Substance Use Type: Reports: None Hx Tobacco Use: Yes Smoking Status (MU): Current Some Day Smoker Type: Cigarettes Have You Smoked in the Last Year: Yes Review of Systems Positive: Palpitations, Chest Pain - mild discomfort Positive: Shortness Of Breath Negative: Vomiting, Diarrhea, Nausea Neurological: Negative - dizziness All Other Systems Reviewed And Are Negative: Yes Physical Exam - Summary Physical Exam Summary: Appearance: Well appearing, no pain distress Skin: warm, dry, reflects adequate perfusion Head/face: normal Eyes: EOMI, CIERA ENT: normal Neck: supple, non-tender Respiratory: CTA, breath sounds present Cardiovascular: irregularly irregular heartrate, pulses symmetrical Abdomen: non-tender, soft Musculoskeletal: normal, strength/ROM intact Neuro: normal, sensory motor intact, A&Ox3 Triage Information Reviewed: Yes Vital Signs On Initial Exam: Initial Vitals Temp Pulse Resp BP Pulse Ox 97.3 F 94 19 129/74 95 11/23/18 10:11 11/23/18 10:11 11/23/18 10:11 11/23/18 10:11 11/23/18 10:11 Vital Signs Reviewed: Yes Diagnostics - Vital Signs Vital Signs Temp Pulse Resp BP Pulse Ox 11/23/18 10:11 97.3 F 94 19 129/74 95 - Laboratory Result Diagrams: 11/23/18 11:10 11/23/18 10:52 Lab Statement: Any lab studies that have been ordered have been reviewed, and results considered in the medical decision making process. - Radiology CXR Radiology Interpretation Completed By: Radiologist Summary of Radiographic Findings: no active cardiopulmonary disease is noted. ED physician has reviewed this radiology report. - EKG 1005 Cardiac Rate: Other Rate EKG Rhythm: Atrial Fibrillation - at 85 BPM Summary of EKG Findings: t changes in anterior lateral leads. Course/Dx - Course Assessment/Plan: This patient is a 63 year old M presenting to [facility] after he states he went in to Afib last night twice. He states it started last night at 2300, has been waxing and waning since, and he does take medication for his Afib. The patient rates the pain 0/10 in severity. Patient reports chest discomfort and SOB. Patient denies n/v/d and dizziness. He states he does have a history of afib. The patient did have a catch in 2014. He sees Dr. Israel for cardiology. He denies etoh use. An EKG reveals afib with t changes in anterior lateral leads. CXR reveals, per radiologist, no active cardiopulmonary disease is noted. The patient received bloodwork in the ED. We discussed patient care with Dr. Fernandez and he accepted the patient for admission. Patient will be admitted. The patient is agreeable with this plan. - Diagnoses Differential Diagnosis/HQI/PQRI: Positive: Coronary Artery Disease, Other - a fib with rvr, unstable angina Provider Diagnoses: Chest pain, rule out acute myocardial infarction, Atrial fibrillation with rapid ventricular response - Physician Notifications Discussed Care Of Patient With: Cameron Fernandez Time Discussed With Above Provider: 12:35 Instructed by Provider To: Admit As Inpatient Discharge - Sign-Out/Discharge Documenting (check all that apply): Patient Departure - admitted - Discharge Plan Condition: Fair Disposition: ADMITTED TO [facility] Referrals: Shaquille Henao MD [Primary Care Provider] - - Billing Disposition and Condition Condition: FAIR Disposition: Admitted to [facility] - Attestation Statements Document Initiated by Keo: Yes Documenting Scribe: Jaiden Cortes Provider For Whom Keo is Documenting (Include Credential): Fortunato Khalil MD Scribe Attestation: Jaiden Pickens scribed for Fortunato Khalil MD on 11/23/18 at 1306. Scribe Documentation Reviewed: Yes Provider Attestation: The documentation as recorded by the Jaiden coon accurately reflects the service I personally performed and the decisions made by Fortunato buck MD Status of Scribe Document: Viewed
[2018-11-23 11:19] LABS: Activated Partial Thrombo Time 29.2 seconds (26.0-36.3); INR 1.39 (0.77-1.02)
[2018-11-23 11:22] LABS: Albumin 3.6 g/dL (3.2-5.2); Albumin/Globulin Ratio 1.2 (1-3); BUN/Creatinine Ratio 24.7 (8-20); Calcium 8.9 mg/dL (8.6-10.3); EGFR African American 122.7 (>60); EGFR Non-African American 101.4 (>60); Globulin 3.1 g/dL (2-4); Total Bilirubin 0.4 mg/dL (0.2-1.0); Total Protein 6.7 g/dL (6.4-8.9)
[2018-11-23 11:23] LABS: Troponin I 0.01 ng/mL (<0.04)
[2018-11-23 11:42] LABS: ABS Basophils 0.1 10^3/ul (0-0.2); ABS Eosinophils 0.1 10^3/ul (0-0.6); ABS Monocytes 0.5 10^3/ul (0-0.8); ABS Neutrophils 4.3 10^3/ul (1.5-7.7); ABS Nucleated RBC 0 10^3/ul; Eosinophil % 2.1 %; Hematocrit 38 % (42-52); Hemoglobin 12.4 g/dl (14.0-18.0); Lymphocyte % 28.1 %; Mean Corpuscular HGB Conc 33 g/dl (31-36); Mean Corpuscular Hemoglobin 27 pg (27-31); Mean Corpuscular Volume 84 fL (80-94); Nucleated Red Blood Cells % 0; Platelet Count 236 10^3/ul (150-450); Red Blood Count 4.56 10^6/ul (4.00-5.40); Red Cell Distribution Width 15 % (10.5-15)
[2018-11-23 12:14] LABS: Magnesium 1.9 mg/dL (1.9-2.7); Potassium 4.6 mmol/L (3.5-5.0)
[2018-11-23] MEDS ORDERED: Magnesium Sulfate 2 GM IV* 2 GM/50 ML BAG IVPB ONE (13:40)
[2018-11-23] MEDS ORDERED: Acetaminophen TAB* 325 MG PO PRN (13:52)
[2018-11-23] MEDS ORDERED: Ondansetron INJ* 2 MG/ML VIAL IV PRN (13:52)
[2018-11-23 14:28] LABS: Magnesium 1.9 mg/dL (1.9-2.7)
[2018-11-23 14:31] LABS: Troponin I 0.01 ng/mL (<0.04)
[2018-11-23] MEDS ORDERED: Dextrose 50% Syringe 50 ML* 25 GM/50 ML SYRINGE IV PUSH PRN (15:42)
[2018-11-23] MEDS ORDERED: Diltiazem IV* 5 MG/ML 5 ML VIAL (for loading dose/IV Push) (25 MG) IV SLOW PU ONE (16:03)
[2018-11-23] MEDS: Insulin LISPRO* 1 UNITS UNIT SUBCUT SCH ×2 (16:41→21:29)
[2018-11-23] MEDS ORDERED: Diltiazem IV VIAL* 125 MG in NS 0.9% 100 ML* 100 ML IV SCH (17:00)
[2018-11-23] MEDS: Rivaroxaban TAB(*) 20 MG TAB PO SCH (17:22)
[2018-11-23] MEDS: Sotalol TAB* 80 MG PO SCH (17:23)
--- NOTE | 2018-11-23 20:36 | HP ---
CC: Dr. Shaquille Henao; Dr. Israel; Dr. Aguillon * HISTORY AND PHYSICAL: DATE OF ADMISSION: 11/23/18 PRIMARY CARE PROVIDER: Shaquille Henao MD in [place], [place]. OTHER PROVIDER: Dr. Israel is the patient's outpatient catalogue librarian. CONSULTING PROVIDER: Dr. Aguillon. ATTENDING PHYSICIAN: Cameron Fernandez MD * (dictated by Starr Zhang, YUE) CHIEF COMPLAINT: 1. Atrial fibrillation. 2. Chest tightness. HISTORY OF PRESENT ILLNESS: Mr. Garcia is a 63-year-old male with a past medical history significant for hypertension, CAD, diabetes, hyperlipidemia, atrial fibrillation, and sleep apnea, who presented to the ED today with complaints of going in and out of atrial fibrillation and having accompanying chest tightness. While in the emergency department, the patient had a chest x- ray that was unremarkable, a troponin that is 0.01, an BNP that is 332 and an EKG that revealed atrial fibrillation with a rate of 85, T changes in anterior leads (which is unchanged from previously). Due to the patient's sustained AFib , which should be noted is rate controlled and continued chest tightness, the hospitalist team was asked to evaluate for admission. On assessment by this screen writer, the patient reports he was lying in bed around 10 o'clock last night when he noted that he went into atrial fibrillation as evidenced by pounding of his heart and irregular rhythm. At this point, he had associated tightness in the chest that he rates at an 8/10. He reports these symptoms lasted for about an hour, then he went back to bed. He reports he woke again at 0200 to go to the bathroom, had repeat of symptoms of pounding of heart and tightness in center of chest for about 10 to 15 minutes. Then, resolved on its own. He woke again this morning and continuing to feel the tightness in his chest. Therefore, took 3 nitro q.5 minutes with no relief. Due to the tightness and intermittent atrial fibrillation, the patient presented to the emergency department. The patient currently reports chest tightness is intermittent and when it is present, it is about a 3/10. It does not radiate. It is not reproducible. It is not associated with nausea, vomiting, diaphoresis. It is not associated with shortness of breath. The patient reports when he felt like he was going into AFib last evening, he did have accompanied shortness of breath. The patient currently denies shortness of breath. The patient denies dizziness, nausea, vomiting, diarrhea, lightheadedness, tinnitus, headache, weakness, diaphoresis, or any other associated symptoms. PAST MEDICAL HISTORY: 1. Hypertension. 2. Sleep apnea; which the patient does not wear CPAP for. 3. GERD. 4. Colon CA in 2011, status post colon resection, no chemo or radiation. 5. Diabetes. 6. Hyperlipidemia. 7. Atrial fibrillation. 8. Obesity. 9. CAD; cardiac catheterization in 2014, 50% to 58% disease of the OM and smaller caliber vessels and posterolateral RCA vessels. 10. Last cardiac stress test on 11/29/16. PAST SURGICAL HISTORY: Colon resection in 2011. HOME MEDICATIONS: 1. Glipizide 10 mg p.o. daily. 2. Xarelto 20 mg daily in the evening. 3. Omeprazole 40 mg p.o. daily. 4. Lasix 40 mg p.o. Saturday, Saturday, Saturday. 5. Aspirin 81 mg p.o. daily. 6. Metoprolol 100 mg p.o. daily. 7. Lipitor 20 mg p.o. at bedtime. 8. Metformin 500 mg p.o. b.i.d. 9. Losartan 100 mg p.o. daily. 10. Norvasc 10 mg p.o. daily. ALLERGIES: The patient has no known drug allergies. FAMILY HISTORY: Father is due to prostate cancer. Mother is due to brain cancer. The patient has one living brother with cardiac issues. Sister due to brain cancer. Sister due to breast cancer. SOCIAL HISTORY: The patient is a current occasional smoker. He reports he smokes when he drives. He does have a significant smoking history of 40 years of approximately 1.5 packs per day. The patient denies drug use. The patient reports rare alcohol use, specifying approximately one drink per month. The patient is retired. The patient lives alone. The patient is independent of his ADLs. The patient is . The patient has two adult children. One of the patient's children, Lizbeth Garcia, phone number [phone] will be the patient's surrogate decision maker in the event he cannot make decisions for himself. REVIEW OF SYSTEMS: A 14-point review of systems was performed and all pertinent positive and negative findings are in the HPI. All others are negative. PHYSICAL EXAMINATION GENERAL: Mr. Garcia is a 63-year-old male who is obese, and sitting on the stretcher in the emergency room. He is in no acute distress. He appears stated age. VITAL SIGNS: Temp 97.3, HR 83, RR 16, O2 sats 96% on room air, BP 109/72. HEENT: Visual lu are grossly intact. PERRLA. EOMs intact. Sclerae without icterus. External ears and nose within normal limits. Oral mucosa is moist without lesion. Tonsils are without erythema or exudate. Pharynx is clear. NECK: Full range of motion. Thyroid not palpable. Trachea midline. No lymphadenopathy. RESPIRATORY: Symmetrical chest expansion. No accessory muscle use. LUNGS: Clear to auscultation. No rhonchi, wheezes, or rubs. CV: The patient has irregular rhythm that is rate controlled. S1, S2 present. No murmurs, rubs, or gallops. No JVD. ABDOMEN: Soft, nondistended, nontender. Bowel sounds x4. Last BM yesterday. EXTREMITIES: Skin and warm and smooth bilaterally. The patient has 1+ to 2+ edema bilaterally. No clubbing or cyanosis. Pedal pulses 2+ bilaterally. MUSCULOSKELETAL: Full range of motion. No pain or deformities. NEURO: Awake, alert, oriented x4. Cranial nerves II through XII grossly intact. Moves all extremities. Motor strength is 5/5 in upper and lower extremities bilaterally. SKIN: Grossly intact without lesions. DIAGNOSTIC STUDIES/LABORATORY DATA: WBC 7, hemoglobin 12.4, hematocrit 38, platelets 236. Sodium 138, potassium 4.6, chloride 108, carbon dioxide 24, BUN 19, creatinine 0.77, glucose 117. Magnesium 1.9. Total bilirubin 0.40, AST 13 , ALT 15, alk phos 86. Troponin 0.01. BNP is 332. Chest x-ray: Impression: No active cardiopulmonary disease is noted. ASSESSMENT AND PLAN: Mr. Garcia is a 63-year-old male with a past medical history significant for coronary artery disease, hypertension, sleep apnea, gastroesophageal reflux disease, colon cancer, diabetes, hyperlipidemia, atrial fibrillation; who presented to the emergency department today with complaints of going in and out of atrial fibrillation and chest tightness and was found to be in rate controlled atrial fibrillation. The patient will be admitted OBV for the followin. Chest tightness: Differentials include demand symptoms due to sustained atrial fibrillation, acute coronary syndrome, gastroesophageal reflux disease, respiratory in etiology, or congestive heart failure. The patient will be admitted to telemetry. As for his symptoms associated with demand, we will continue the patient's metoprolol 100 mg p.o. daily. I will also add a p.r.n. metoprolol as needed. As for the differential of acute coronary syndrome, we will keep the patient on tele, repeat troponins, and repeat EKGs. The patient' s MONICA score is a 5 and HEART score also is 5. We will continue the patient's aspirin, which he takes daily and monitor symptoms. For the gastroesophageal reflux disease, we will continue the patient's omeprazole that he takes at home. As for respiratory as an etiology, this is low on my differential as the patient's lung assessment is within normal limits and chest x-ray is also within normal limits. He is also maintaining his oxygen saturation on room air. He denies cough or other respiratory symptoms. As for congestive heart failure, it is still in differential and would be due to sustained atrial fibrillation. Although he does not appear to be in an exacerbation as his lung assessment is normal and he is maintaining his O2 saturation on room air, but it should be noted that he does have a mildly elevated BNP of 332. We will continue to monitor the patient for progressing signs of congestive heart failure. 2. Atrial fibrillation. The patient has a known history of atrial fibrillation and is on metoprolol. He reports that he usually is in sinus rhythm and only goes in and out of atrial fibrillation may be once every other month. This frequency of in and out of atrial fibrillation is new for the patient in addition to the associated symptoms of chest tightness. We will continue to monitor the patient as mentioned above. In addition, we will continue the patient's metoprolol 100 mg p.o. daily and his Xarelto 20 mg p.o. daily. 3. Hypertension. The patient is currently normotensive. We will continue the patient's losartan, amlodipine, metoprolol, and Lasix (Saturday, Saturday, Saturday ). 4. Sleep apnea with no treatment: There is a risk that the patient has sleep apnea and he is not treating especially with his associated diabetes and heart condition. I believe the patient would benefit from a followup with wrapper stitcher regarding a CPAP if he could tolerate. 5. Gastroesophageal reflux disease: As mentioned above, we will continue the patient's omeprazole. 6. Diabetes. The patient is on glipizide and metformin at home. Due to the patient's acute condition, we will hold these medications and provide a sliding scale of lispro. He will also have fingersticks a.c. and h.s. 7. Hyperlipidemia: The patient will continue his statin as previously prescribed. I have also ordered a repeat lipid for the morning. 8. Colon cancer in 2011 with resection: The patient reports that he is up to date on his colonoscopies and followed closely with his GI doctor. I will defer this to his primary care and GI doctor. 9. Edema. The patient was noted to have some edema of bilateral lower extremities on assessment. We will continue the patient's Lasix 40 mg p.o. Saturday, Saturday, Saturday. If need be, we can increase the patient's frequency. I have also ordered daily weights. 10. FEN: The patient will be placed on heart healthy diet with no caffeine. 11. Code status. The patient is a full code. 12. DVT prophylaxis. Based on the DVT risk assessment, the patient is at high risk. He is on Xarelto; I will continue this. TIME SPENT: Approximately 60 minutes was spent on this admission, greater than half the time was spent [id number] with the patient obtaining my history and performing my physical exam and reviewing the plan of care. The case has been reviewed with my attending, Dr. Fernandez, who is in agreement with my plan. STARR ZHANG, YUE [id number]/[facility] #: [id number] COLLEEN
[2018-11-23] MEDS: Atorvastatin* 20 MG TAB PO SCH (21:42)
--- NOTE | 2018-11-23 23:22 | CONS ---
CC: Dr. Israel; Dr. Shaquille Henao, [facility] Primary [facility], [address] [place] [address]. * CARDIOLOGY CONSULTATION: DATE OF CONSULT: 11/23/18 PATIENT OF: Dr. Israel. REASON FOR EVALUATION: AFib, chest pain. HISTORY OF PRESENT ILLNESS: This is a very pleasant 63-year-old gentleman with a history of hypertension, diabetes, paroxysmal atrial fibrillation for the last 3 years. He said he was in his usual state of health until last night, around 10 p.m., he noted his heart was irregular. When he got up to move around , it got faster. It was associated with some intermittent chest pressure, which is typical for his AFib. He also felt a little more tired and short of breath when exerting himself. He slept last night, but he continued in AFib and came to the hospital today. He was found in AFib with relatively normal resting heart rate in the 70s, but with an increase to the 140s with minimal exertion. He said that his AFib started about 3 years ago and his last episode was about a year ago and lasted for 10 to 15 minutes. He has not needed cardioversions. He does not identify any triggers in particular. He has 2 cups of coffee a day, which is a standard. He has about 1 alcoholic beverage every 2 months. He does have a history of sleep apnea, but has not used his CPAP in a month, because he does not feel it helps and he does not feel comfortable with it. He denies orthopnea, fevers, chills, sweats, nausea or vomiting. 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 He takes care of his own horses and walks to the barn and cleans their stalls daily. He states sometimes he has to stop for shortness of breath when he exerts himself, but there has been no change the last year. PAST MEDICAL HISTORY: Includes: 1. Obesity. 2. Diabetes. 3. Hypertension. 4. Nonobstructive coronary artery disease by catheterization back in September of 2015. At that time he had up to 50% in the OM with left circumflex plaquing and 50% to 55% of the posterolateral branch of the RCA that tapers distally to a small vessel. He had an echocardiogram in November of 2017 that revealed mild LVH with an EF of 55% to 60%, trace TR, trace MR, mildly dilated ascending aorta of 4.0 cm, and he had nuclear stress test in November 2016, which revealed small fixed defect of the lateral wall, no reversible defects, low risk , EF of 53% with rest, 55% with stress. It was an alert pharmacologic stress test. He had a Holter monitor performed in October of 2017 that revealed normal sinus rhythm, average heart rate of 62 with PACs, no AFib. PAST SURGICAL HISTORY: Includes colon cancer, resected 3 years ago. ALLERGIES: He has no known drug allergies. MEDICATIONS: As an outpatient include: 1. Amlodipine 10 mg a day. 2. Aspirin 81 mg a day. 3. Atorvastatin 20 mg a day. 4. Furosemide 40 mg, 3 times a week. 5. Losartan 100 mg a day. 6. Metoprolol 100 mg a day. 7. Zofran 4 mg q.4 p.r.n. 8. Protonix 40 mg a day. 9. Xarelto 20 mg q.p.m. He has been compliant with his medicines. SOCIAL HISTORY: He is ; he has 2 adult children. FAMILY HISTORY: Includes 1 of 10 siblings with premature coronary artery disease. REVIEW OF SYSTEMS: Review of systems x12 was negative, except as above. PHYSICAL EXAMINATION: On physical exam, he is a well-developed, well-nourished gentleman, obese, in no apparent distress. Weight 151 pounds, blood pressure 122/74, pulse is 76 and regular, O2 sat is 97% on room air. Atraumatic, normocephalic. Extraocular muscles are intact. Sclerae anicteric. No significant JVD. Carotids are 2+, without bruits. No cervical adenopathy or thyromegaly. Cardiac Exam: S1 and S2, with no murmurs, gallops or rubs. Chest was clear. No CVAT. Abdomen: Obese. Bowel sounds present. No hepatosplenomegaly, somewhat suboptimal exam due to obesity. Femoral pulses intact, without bruits. Distal pulses intact, there was 1+ edema in the lower extremity with some chronic venous stasis changes and motor strength 5/5 bilaterally. Deep tendon reflexes 2/4. Alert and oriented x3. DIAGNOSTIC STUDIES/LAB DATA: His labs include a mildly decreased hematocrit of 34, hemoglobin of 12.4; this is up from 32 in January 2018. Potassium 4.6, BUN 19 , creatinine of 0.77, glucose 117. Troponin 0.01 and 0.01. BNP elevated at 332. Chest x-ray, by report, no active disease. His EKG revealed atrial fibrillation with a heart rate in the 80s and diffuse lateral ST-T changes with biphasic inverted T waves, which is similar to January 2018, except that he was in sinus rhythm then. IMPRESSION: My impression is that Mr. Garcia appears to have a recurrent episode of AFib, which is persisting. He also has risk factors including hypertension, diabetes, hyperlipidemia, and nonobstructive coronary disease. He has mildly abnormal nuclear scan, which may be in the distribution of the circumflex disease. He does have some chest pain, which may be related to his AFib and/or increased demand and ischemia; however, his troponins are negative. For the time being I recommended the followin. I suggested that we add IV diltiazem to try to control his rate and hopefully facilitate conversion to sinus rhythm. 2. I would switch his amlodipine to Covera, to try to improve rate control when he does have AFib. We will have to watch for bradycardia. 3. He is to start sotalol 80 mg b.i.d. We will monitor his QT prolongation. 4. If he fails to convert, we will consider a cardioversion tomorrow. 5. I recommended and switched his Toprol from 100 mg once a day to 50 mg twice a day. 6. We will hold his losartan tomorrow given his low normal blood pressures and consider restarting a lower dose of 50 mg, as his blood pressure will allow. 7. Once his medications are adjusted and he is converted to sinus, he is to follow up with Dr. Israel as an outpatient. An exercise at weight reduction might be helpful in terms of his morbidity, mortality, and also his quality of life and exercise capacity. [id number]/[facility] #: [id number] COLLEEN
[2018-11-24 05:31] LABS: ABS Basophils 0.1 10^3/ul (0-0.2); ABS Eosinophils 0.2 10^3/ul (0-0.6); ABS Monocytes 0.6 10^3/ul (0-0.8); ABS Neutrophils 4.7 10^3/ul (1.5-7.7); ABS Nucleated RBC 0 10^3/ul; Eosinophil % 2.2 %; Hematocrit 40 % (42-52); Hemoglobin 12.8 g/dl (14.0-18.0); Lymphocyte % 26.4 %; Mean Corpuscular HGB Conc 33 g/dl (31-36); Mean Corpuscular Hemoglobin 27 pg (27-31); Mean Corpuscular Volume 83 fL (80-94); Mean Platelet Volume 7.8 fL (7.4-10.4); Nucleated Red Blood Cells % 0; Platelet Count 200 10^3/ul (150-450); Red Blood Count 4.74 10^6/ul (4.00-5.40); Red Cell Distribution Width 15 % (10.5-15); White Blood Count 7.5 10^3/ul (3.5-10.8)
[2018-11-24 05:50] LABS: Albumin 3.6 g/dL (3.2-5.2); Albumin/Globulin Ratio 1.4 (1-3); BUN/Creatinine Ratio 19.5 (8-20); Calcium 8.7 mg/dL (8.6-10.3); EGFR African American 114.1 (>60); EGFR Non-African American 94.3 (>60); Globulin 2.6 g/dL (2-4); Indirect Bilirubin 0.3 mg/dL (0.3-1.0); Potassium 4.2 mmol/L (3.5-5.0); Total Bilirubin 0.4 mg/dL (0.2-1.0); Total Protein 6.2 g/dL (6.4-8.9)
[2018-11-24] MEDS: Insulin LISPRO* 1 UNITS UNIT SUBCUT SCH ×4 (07:41→20:46)
[2018-11-24] MEDS ORDERED: Metoprolol Succinate XL TAB* 100 MG PO SCH (09:00)
[2018-11-24] MEDS ORDERED: Losartan TAB* 25 MG PO SCH (09:00)
[2018-11-24] MEDS ORDERED: amLODIPine TAB* 5 MG PO SCH (09:00)
[2018-11-24] MEDS: Metoprolol Succinate XL TAB* 50 MG PO SCH ×2 (09:16→20:45)
[2018-11-24] MEDS: Pantoprazole TAB * 40 MG TAB PO SCH (09:16)
[2018-11-24] MEDS: Verapamil SR CAP* 180 MG PO SCH (09:16)
[2018-11-24] MEDS: Sotalol TAB* 80 MG PO SCH ×2 (09:16→20:45)
[2018-11-24] MEDS: Furosemide TAB* 40 MG PO SCH (09:16)
[2018-11-24] MEDS: Aspirin EC TAB* 81 MG TAB.EC PO SCH (09:16)
--- NOTE | 2018-11-24 10:36 | PN ---
Subjective Date of Service: 11/24/18 Interval History: Pt states that he was SOB from approximately 3 or 4 a.m. until approximately 7 or 8 a.m. During this time, he experienced no other symptoms, including no palpitations, CP, dizziness, presynocope or syncope. His is tolerating new medications and dosage changes well, he states. He continues to deny CP, gray, dizziness, presyncope/syncope, abd pain, n/v/d/c, extremity pain, lower extremity edema, calf pain or tenderness. Objective Active Medications: Acetaminophen (Tylenol Tab*) 650 mg PO Q4H PRN Aspirin (Aspirin Ec Tab*) 81 mg PO DAILY RAQUEL Atorvastatin Calcium (Lipitor*) 20 mg PO BEDTIME RAQUEL Dextrose (D50w Syringe 50 Ml*) 12.5 gm IV PUSH .FOR FS < 60 - SS PRN Furosemide (Lasix Tab*) 40 mg PO MoWeFr@0900 RAQUEL Insulin Human Lispro (Humalog*) 0 units SUBCUT ACHS RAQUEL; Protocol Losartan Potassium (Cozaar Tab*) 50 mg PO DAILY RAQUEL Metoprolol Succinate (Toprol Xl Tab*) 50 mg PO BID RAQUEL Ondansetron HCl (Zofran Inj*) 4 mg IV Q4H PRN Pantoprazole Sodium (Protonix Tab*) 40 mg PO DAILY RAQUEL Rivaroxaban (Xarelto(*)) 20 mg PO 1800 RAQUEL Sotalol HCl (Betapace Tab*) 80 mg PO BID RAQUEL Verapamil HCl (Calan Sr Cap*) 180 mg PO DAILY RAQUEL Vital Signs: Temp Pulse Resp BP Pulse Ox 97.5 F 88 18 135/70 94 11/24/18 07:12 11/24/18 07:12 11/24/18 07:12 11/24/18 07:12 11/24/18 07:12 Oxygen Devices in Use Now: None Result Diagrams: 11/24/18 05:14 11/24/18 05:14 Assess/Plan/Problems-Billing Assessment: - Patient Problems (1) Atrial fibrillation Comment: -Tele shows NSR with rhythm in 50's-60's since 9:45 a.m. -Thank you cardiology for consult and recommendations -Continue verapamil, Satalol, metoprolol, Losartan -Follow up with Dr. Israel after discharge (2) Hypertension Comment: -Stable -Continue medications (3) Type 2 diabetes mellitus Comment: -Continue sliding scale Lispro (4) Hyperlipidemia Comment: -Continue atorvastatin (5) CAD (coronary artery disease) Comment: -Stable -Continuye Aspirin, Metoprolol, Atorvastatin (6) Obstructive sleep apnea Comment: -Pt has not used CPAP in approximately 1 year and feels he no longer has HALI. We discussed referral to Pulmonology regarding retesting/follow-up, and he is not interested at this time. (7) DVT prophylaxis Comment: -Pt is on Xarelto (8) Full code status
[2018-11-24] MEDS: Rivaroxaban TAB(*) 20 MG TAB PO SCH (17:09)
[2018-11-24] MEDS: Atorvastatin* 20 MG TAB PO SCH (20:45)
[2018-11-25] MEDS: Insulin LISPRO* 1 UNITS UNIT SUBCUT SCH ×4 (08:26→21:12)
[2018-11-25] MEDS: Sotalol TAB* 80 MG PO SCH ×2 (08:37→21:12)
[2018-11-25] MEDS: Pantoprazole TAB * 40 MG TAB PO SCH (08:37)
[2018-11-25] MEDS: Aspirin EC TAB* 81 MG TAB.EC PO SCH (08:37)
[2018-11-25] MEDS: Verapamil SR CAP* 180 MG PO SCH (08:38)
[2018-11-25] MEDS: Losartan TAB* 25 MG PO SCH (08:38)
[2018-11-25] MEDS: Metoprolol Succinate XL TAB* 50 MG PO SCH (08:38)
--- NOTE | 2018-11-25 09:56 | PN ---
Subjective Date of Service: 11/25/18 Interval History: Pt states he feels "good" today. He states that he had one bout of shortness of breath that lasted a few minutes this morning, and it was relieved with sitting up. Usually he states that his SOB lasts much longer. He denies CP, gray , SOB, cough, fever/chills, dizziness/lightheadedness, abdominal pain, n/v/d/c, extremity pain/weakness, calf tenderness. Objective Active Medications: Acetaminophen (Tylenol Tab*) 650 mg PO Q4H PRN Aspirin (Aspirin Ec Tab*) 81 mg PO DAILY RAQUEL Atorvastatin Calcium (Lipitor*) 20 mg PO BEDTIME RAQUEL Dextrose (D50w Syringe 50 Ml*) 12.5 gm IV PUSH .FOR FS < 60 - SS PRN Furosemide (Lasix Tab*) 40 mg PO MoWeFr@0900 [facility] Insulin Human Lispro (Humalog*) 0 units SUBCUT ACHS RAQUEL; Protocol Losartan Potassium (Cozaar Tab*) 50 mg PO DAILY [facility] Metoprolol Succinate (Toprol Xl Tab*) 50 mg PO BID RAQUEL Ondansetron HCl (Zofran Inj*) 4 mg IV Q4H PRN Pantoprazole Sodium (Protonix Tab*) 40 mg PO DAILY RAQUEL Rivaroxaban (Xarelto(*)) 20 mg PO 1800 RAQUEL Sotalol HCl (Betapace Tab*) 80 mg PO BID RAQUEL Verapamil HCl (Calan Sr Cap*) 180 mg PO DAILY [facility] Vital Signs: Temp Pulse Resp BP Pulse Ox 97.3 F 56 20 133/64 94 11/25/18 03:10 11/25/18 08:25 11/25/18 08:25 11/25/18 08:25 11/25/18 08:25 Oxygen Devices in Use Now: None Appearance: Pt is sitting at edge of bed eating breakfast. He appears well, in no acute distress. Eyes: No Scleral Icterus, PERRLA Ears/Nose/Mouth/Throat: NL Teeth, Lips, Gums, Mucous Membranes Moist Neck: NL Appearance and Movements; NL JVP, Trachea Midline, No Thyroid Enlargement, Masses Respiratory: Symmetrical Chest Expansion and Respiratory Effort, Clear to Auscultation Cardiovascular: NL Sounds; No Murmurs; No JVD, RRR, No Edema, - - Radial, pedal pulses palpable. Abdominal: NL Sounds; No Tenderness; No Distention, No Hepatosplenomegaly Lymphatic: No Cervical Adenopathy Neurological: Alert and Oriented x 3 Result Diagrams: 11/24/18 05:14 11/24/18 05:14 Assess/Plan/Problems-Billing Assessment: - Patient Problems (1) Atrial fibrillation Comment: -Tele shows NSR with rhythm in 50's-60's since yesterday 9:45 a.m. -Thank you cardiology for consult and recommendations -Continue verapamil, Satalol, metoprolol, Losartan -Metoprolol dose from 50 bid to 25 bid -Follow up with Dr. Israel after discharge (2) Hypertension Comment: -Stable -Continue medications (3) Type 2 diabetes mellitus Comment: -Constant carbohydrate diet ordered -Continue sliding scale Lispro (4) Hyperlipidemia Comment: -Continue atorvastatin (5) CAD (coronary artery disease) Comment: -Stable -Continuye Aspirin, Metoprolol, Atorvastatin (6) Obstructive sleep apnea Comment: -Pt has not used CPAP in approximately 1 year and feels he no longer has HALI. We discussed referral to Pulmonology regarding retesting/follow-up, and he is not interested at this time. (7) DVT prophylaxis Comment: -Pt is on Xarelto (8) Full code status
[2018-11-25] MEDS: Rivaroxaban TAB(*) 20 MG TAB PO SCH (18:33)
[2018-11-25] MEDS: Metoprolol Succinate XL TAB* 25 MG PO SCH (21:11)
[2018-11-25] MEDS: Atorvastatin* 20 MG TAB PO SCH (21:12)
[2018-11-26] MEDS: Insulin LISPRO* 1 UNITS UNIT SUBCUT SCH (08:31)
[2018-11-26 08:32] VITALS: BP 154/71
[2018-11-26] MEDS: Sotalol TAB* 80 MG PO SCH (08:32)
[2018-11-26] MEDS: Losartan TAB* 25 MG PO SCH (08:32)
[2018-11-26] MEDS: Furosemide TAB* 40 MG PO SCH (08:33)
[2018-11-26] MEDS: Pantoprazole TAB * 40 MG TAB PO SCH (08:33)
[2018-11-26] MEDS: Verapamil SR CAP* 180 MG PO SCH (08:33)
[2018-11-26] MEDS: Metoprolol Succinate XL TAB* 25 MG PO SCH (08:33)
[2018-11-26] MEDS: Aspirin EC TAB* 81 MG TAB.EC PO SCH (08:33)
--- NOTE | 2018-11-26 09:44 | DS ---
DISCHARGE SUMMARY: DATE OF ADMISSION: 11/23/18 DATE OF DISCHARGE: 11/26/18 PRIMARY CARE PROVIDER: Dr. Shaquille Henao. LPN PER DIEM: Dr. Levi Aguillon. ATTENDING PROVIDER: Dr. Libby Calabrese.* (DICTATED BY AGATHA CORBETT) PRIMARY DIAGNOSIS: Atrial fibrillation. SECONDARY DIAGNOSES: 1. Hypertension. 2. Obstructive sleep apnea, patient does not wear CPAP. 3. Gastroesophageal reflux disease. 4. History of colon cancer in 2011, status post colon resection. No chemo, no radiation. 5. Diabetes. 6. Hyperlipidemia. 7. Atrial fibrillation. 8. Obesity. 9. Coronary artery disease. Cardiac cath 2014, 50% to 58% disease of OM and smaller caliber vessels and posterolateral RCA vessels. Last cardiac stress test on 11/29/16. STUDIES WHILE IN THE HOSPITAL: Chest x-ray, 11/23/18, impression: No active cardiopulmonary disease is noted. Patient was on tele and had daily EKGs as well. DISCHARGE MEDICATIONS: Home Medications: 1. Glipizide 10 mg p.o. daily. 2. Rivaroxaban 20 mg p.o. daily. 3. Omeprazole cap 40 mg p.o. daily. 4. Furosemide tab 40 mg p.o. Saturday, Saturday, Saturday. 5. Aspirin 81 mg p.o. daily. 6. Atorvastatin 20 mg p.o. at bedtime. 7. Metformin 500 mg p.o. b.i.d. [place] Medications: 1. Verapamil SR cap 180 mg p.o. daily. 2. Sotalol tab 80 mg p.o. b.i.d. 3. Metoprolol succinate XL 25 mg p.o. b.i.d. 4. Losartan 50 mg p.o. daily. HISTORY OF PRESENT ILLNESS/HOSPITAL COURSE: Mr. Garcia is a 63-year-old male with a past medical history as described above who presented to the ER on with complaints that he was having chest tightness and going in and out of AFib. In the emergency department, he received a chest x-ray. It was unremarkable. Troponin was 0.01, BNP was 332, and EKG revealed atrial fibrillation that was sustained. The patient states that the night before he felt intermittent chest tightness that was not relieved with nitro. He felt palpitations and an irregular rhythm with his heart beat. This caused the patient to seek medical attention the following morning. The patient has accompanied shortness of breath when he has atrial fibrillation, but not when he feels that his heart rate is regular. The patient was admitted. Troponins were 0.01 x3. Cardiology was consulted and made suggestions to changes in the patient's medical regimen, which is as above. Patient was started on sotalol 80 mg b.i.d. with daily EKGs to monitor for QT prolongation. The patient was on tele throughout his stay. The patient converted to normal sinus rhythm around 9:45 on 11/24/18 and remained in normal sinus rhythm throughout his visit. He was continually monitored for QTc prolongation. He experienced no difficulties with his transition to new medications. The patient states that he continues to have intermittent shortness of breath. This occurs at rest. It is not associated with activity. It occurs mostly in the morning and lasts a very short amount of time, only minutes. It is noted that the patient does have a history of sleep apnea, for which he refuses to use the CPAP machine. We discussed this and the patient is disinterested in seeking consult with Pulmonology, although it is recommended. At the time of discharge, the patient denies chest pain, shortness of breath, palpitations, dizziness, lightheadedness , presyncope, syncope, diaphoresis, chest tightness, abdominal pain, nausea, vomiting, diarrhea, pain in the extremities, lower extremity swelling, calf tenderness. PHYSICAL EXAM: General: Mr. Garcia is a well-developed, obese white male who is sitting up in bed in no acute distress. He appears well. Vital Signs: Temperature 97.8 orally, heart rate 57, respiratory rate 20, oxygen saturation 94%, blood pressure is 146/64. HEENT: Visual lu grossly intact. Pupils equally round and reactive to light and accommodation. Extraocular movements intact. Sclerae without icterus. Hearing grossly intact. Oral mucous membranes moist and without lesions. Pharynx is clear. Neck: Full range of motion. Thyroid not palpable. Trachea midline. No lymphadenopathy. Respiratory: Symmetrical chest expansion. No use of accessory muscles. Lungs : Clear to auscultation. No rhonchi, wheezes, or rubs. Cardiovascular: Regular rate and rhythm. S1, S2 present. No murmurs, rubs, clicks, or gallops. No JVD. Abdomen: Bowel sounds in all 4 quadrants. Abdomen is protuberant and soft and nontender to palpation. Musculoskeletal: Full range of motion. No pain or deformities. Extremities: Skin is warm and smooth bilaterally. There is no edema. There is no clubbing or cyanosis. Radial and pedal pulses are 2+ bilaterally. Neuro: Patient is awake, alert, and oriented. He moves all of his extremities. His motor strength is 5/5 in the upper and lower extremities bilaterally. He has a steady gait with no impairment. DISCHARGE PLAN: Mr. Garcia will be discharged home. ACTIVITY: As tolerated. DIET: ADA/diabetic diet, heart healthy. EDUCATION: 1. Follow up with Cardiology today as scheduled. 2. Metoprolol, sotalol, losartan, and verapamil are new medications. A 2-week supply has been sent to your pharmacy. Please see PCP or Cardiology for refills. 3. Follow up with primary care provider in 4 to 7 days. 4. Consider followup with Pulmonology regarding sleep apnea. 5. Return to the ER or nearest hospital if you experience any return or worsening of symptoms, shortness of breath, lightheadedness, dizziness, fall, chest discomfort, high fevers, chills, night sweats, loss of consciousness, or any other worrisome sign or symptom. This is a summarized report of a complex medical history and hospital stay. For further details, please see the entire medical record. TIME SPENT: Approximately 35 minutes were spent on this discharge, greater than half of that time was spent [id number] with the patient discussing discharge plans and instructions. AGATHA CORBETT [id number]/CPS #: [id number] [place]
== END 2018-11-26 10:00 | disposition home or self-care (01) | DRG 309 ==
LOC: ED 10:04 → MEDTELE 13:52 → OBSVTOIN 11-24 16:00
PROVIDERS: ADMIT Internal Medicine; ATTEND Internal Medicine
DX: I48.0 Paroxysmal atrial fibrillation (principal); Z68.41 Body mass index [BMI] 40.0-44.9, adult; I25.10 Atherosclerotic heart disease of native coronary artery without angina pectoris; I11.9 Hypertensive heart disease without heart failure; G47.33 Obstructive sleep apnea (adult) (pediatric); K21.9 Gastro-esophageal reflux disease without esophagitis; E11.9 Type 2 diabetes mellitus without complications; E78.5 Hyperlipidemia, unspecified; R60.0 Localized edema; E66.9 Obesity, unspecified; F17.210 Nicotine dependence, cigarettes, uncomplicated; Z85.038 Personal history of other malignant neoplasm of large intestine; Z79.01 Long term (current) use of anticoagulants; Z79.84 Long term (current) use of oral hypoglycemic drugs; Z79.82 Long term (current) use of aspirin; Z79.899 Other long term (current) drug therapy; Z80.42 Family history of malignant neoplasm of prostate; Z80.3 Family history of malignant neoplasm of breast; Z80.8 Family history of malignant neoplasm of other organs or systems; Z82.49 Family history of ischemic heart disease and other diseases of the circulatory system
CPT/HCPCS: 36415; 71045; 80048; 80053; 80076; 83735; 83880; 84484; 85025; 85610; 85730; 93005; 99284; 99406; A9270-GY; G0378; J3475

== ENCOUNTER 2022-02-11 12:57 | Observation (INO) ==
[2022-02-11] MEDS ORDERED: methylPREDNISolone SOD SUCC 125 mg 2 ML VIAL ONE (13:07)
[2022-02-11] MEDS ORDERED: methylPREDNISolone SOD SUCC 125 mg 2 ML VIAL IV ONE (13:07)
[2022-02-11] MEDS ORDERED: Famotidine IV 10 MG/ML 2 ml VIAL (20 mg) ONE (13:12)
[2022-02-11] MEDS: Famotidine IV 10 MG/ML 2 ml VIAL (20 mg) IV SLOW PU SCH ×2 (13:12→21:33)
[2022-02-11 13:30] LABS: ABS Basophils 0.1 10^3/ul (0-0.2); ABS Eosinophils 0.2 10^3/ul (0-0.6); ABS Lymphocytes 1.7 10^3/ul (1.0-4.8); ABS Monocytes 0.5 10^3/ul (0-0.8); ABS Neutrophils 5.5 10^3/ul (1.5-7.7); Eosinophil % 2.3 %; Hematocrit 40 % (42-52); Hemoglobin 13.2 g/dL (14.0-18.0); Lymphocyte % 21.3 %; Mean Corpuscular HGB Conc 33 g/dL (31-36); Mean Corpuscular Hemoglobin 27 pg (27-31); Mean Corpuscular Volume 81 fL (80-94); Mean Platelet Volume 7.9 fL (7.4-10.4); Nucleated Red Blood Cells % 0.1; Platelet Count 251 10^3/uL (150-450); Red Blood Count 4.91 10^6 /uL (4.18-5.48); Red Cell Distribution Width 17 % (10-15)
[2022-02-11 14:50] LABS: Albumin/Globulin Ratio 1.4 (1-3); Calcium 9.1 mg/dL (8.6-10.3); Globulin 2.9 g/dL (2-4); Potassium 4.5 mmol/L (3.5-5.0); Total Bilirubin 0.5 mg/dL (0.2-1.0); Total Protein 6.9 g/dL (6.4-8.9); eGFR CKD-EPI 98.7 (>60)
[2022-02-11] MEDS ORDERED: Enoxaparin 40 MG/0.4 ML SYR SUBCUT SCH (16:00)
[2022-02-11 17:01] LABS: C Reactive Protein 11.95 mg/L (<8.01)
[2022-02-11] MEDS ORDERED: Dextrose 50% Syringe 50 ml 25 GM/50 ML SYRINGE IV PUSH PRN (17:04)
[2022-02-11] MEDS: Metoprolol Tartrate 5 mg VIAL 5 ml VIAL (1 mg/ml) IV SCH (19:53)
[2022-02-11] MEDS: methylPREDNISolone SOD SUCC 40 mg/ml 1 ml VIAL IV SCH (21:33)
[2022-02-12] MEDS: Metoprolol Tartrate 5 mg VIAL 5 ml VIAL (1 mg/ml) IV SCH ×3 (00:04→11:55)
[2022-02-12 02:45] LABS: Magnesium 1.8 mg/dL (1.9-2.7)
[2022-02-12 06:42] LABS: ABS Lymphocytes 0.7 10^3/ul (1.0-4.8); ABS Monocytes 0.2 10^3/ul (0-0.8); ABS Neutrophils 9.7 10^3/ul (1.5-7.7); Hematocrit 37 % (42-52); Hemoglobin 12.1 g/dL (14.0-18.0); Lymphocyte % 6.3 %; Mean Corpuscular HGB Conc 33 g/dL (31-36); Mean Corpuscular Hemoglobin 27 pg (27-31); Mean Corpuscular Volume 82 fL (80-94); Mean Platelet Volume 8.2 fL (7.4-10.4); Platelet Count 241 10^3/uL (150-450); Red Blood Count 4.51 10^6 /uL (4.18-5.48); Red Cell Distribution Width 17 % (10-15); White Blood Count 10.6 10^3/uL (3.5-10.8)
[2022-02-12 06:56] LABS: Albumin 3.9 g/dL (3.2-5.2); Albumin/Globulin Ratio 1.4 (1-3); Calcium 9.1 mg/dL (8.6-10.3); Globulin 2.8 g/dL (2-4); Magnesium 1.9 mg/dL (1.9-2.7); Potassium 4.2 mmol/L (3.5-5.0); Total Bilirubin 0.4 mg/dL (0.2-1.0); Total Protein 6.7 g/dL (6.4-8.9); eGFR CKD-EPI 97.9 (>60)
[2022-02-12] MEDS: Famotidine IV 10 MG/ML 2 ml VIAL (20 mg) IV SLOW PU SCH (08:40)
[2022-02-12] MEDS: methylPREDNISolone SOD SUCC 40 mg/ml 1 ml VIAL IV SCH (08:40)
[2022-02-12] MEDS ORDERED: Aspirin EC 81 mg TAB.EC (enteric coated) PO SCH (09:00)
[2022-02-12 12:26] VITALS: BP 145/77
== END 2022-02-12 14:20 | disposition home or self-care (01) ==
LOC: ED 12:57 → OBSVTOIN 15:00 → INTOOBSV 15:00 → EDHOLD 15:00 → MEDTELE 17:35
PROVIDERS: ADMIT Student in an Organized Health Care Education/Training Program; ATTEND Hospitalist

== ENCOUNTER 2022-03-27 20:31 | Observation (INO) ==
[2022-03-27] MEDS ORDERED: EPINEPHrine Anaphylaxis SYR CERTADOSE SYR KIT ONE (20:37)
[2022-03-27] MEDS ORDERED: Famotidine IV 10 MG/ML 2 ml VIAL (20 mg) ONE (20:38)
[2022-03-27] MEDS ORDERED: methylPREDNISolone SOD SUCC 125 mg 2 ML VIAL ONE (20:41)
[2022-03-27] MEDS ORDERED: Famotidine IV 10 MG/ML 2 ml VIAL (20 mg) IV SLOW PU ONE (21:34)
[2022-03-27] MEDS ORDERED: methylPREDNISolone SOD SUCC 125 mg 2 ML VIAL IV ONE (21:34)
[2022-03-27 22:45] LABS: ABS Basophils 0.1 10^3/ul (0-0.2); ABS Eosinophils 0.1 10^3/ul (0-0.6); ABS Lymphocytes 1.2 10^3/ul (1.0-4.8); ABS Monocytes 0.4 10^3/ul (0-0.8); ABS Neutrophils 7.8 10^3/ul (1.5-7.7); Eosinophil % 1.2 %; Hematocrit 38 % (42-52); Hemoglobin 11.9 g/dL (14.0-18.0); Lymphocyte % 12.3 %; Mean Corpuscular HGB Conc 32 g/dL (31-36); Mean Corpuscular Hemoglobin 26 pg (27-31); Mean Corpuscular Volume 82 fL (80-94); Mean Platelet Volume 7.9 fL (7.4-10.4); Platelet Count 266 10^3/uL (150-450); Red Blood Count 4.62 10^6 /uL (4.18-5.48); Red Cell Distribution Width 17 % (10-15); White Blood Count 9.5 10^3/uL (3.5-10.8)
[2022-03-27 23:36] LABS: Albumin 3.9 g/dL (3.2-5.2); Albumin/Globulin Ratio 1.4 (1-3); C Reactive Protein 6.86 mg/L (<8.01); Calcium 8.9 mg/dL (8.6-10.3); Globulin 2.7 g/dL (2-4); Potassium 4.2 mmol/L (3.5-5.0); Total Bilirubin 0.4 mg/dL (0.2-1.0); Total Protein 6.6 g/dL (6.4-8.9); eGFR CKD-EPI 91.8 (>60)
[2022-03-28 01:49] LABS: Erythrocyte Sed Rate 16 mm/Hr (0-19)
[2022-03-28 05:43] LABS: ABS Lymphocytes 0.5 10^3/ul (1.0-4.8); ABS Monocytes 0.1 10^3/ul (0-0.8); ABS Neutrophils 6.7 10^3/ul (1.5-7.7); Eosinophil % 0.1 %; Hematocrit 36 % (42-52); Hemoglobin 11.8 g/dL (14.0-18.0); Lymphocyte % 6.8 %; Mean Corpuscular HGB Conc 33 g/dL (31-36); Mean Corpuscular Hemoglobin 26 pg (27-31); Mean Corpuscular Volume 81 fL (80-94); Mean Platelet Volume 7.8 fL (7.4-10.4); Platelet Count 201 10^3/uL (150-450); Red Blood Count 4.51 10^6 /uL (4.18-5.48); Red Cell Distribution Width 17 % (10-15); White Blood Count 7.3 10^3/uL (3.5-10.8)
[2022-03-28] MEDS ORDERED: Dextrose 50% Syringe 50 ml 25 GM/50 ML SYRINGE IV PUSH PRN (06:02)
[2022-03-28 06:23] LABS: Albumin 3.7 g/dL (3.2-5.2); Albumin/Globulin Ratio 1.4 (1-3); Calcium 8.8 mg/dL (8.6-10.3); Globulin 2.7 g/dL (2-4); Potassium 4.4 mmol/L (3.5-5.0); Total Bilirubin 0.4 mg/dL (0.2-1.0); Total Protein 6.4 g/dL (6.4-8.9); eGFR CKD-EPI 99.1 (>60)
[2022-03-28 06:37] LABS: TSH Ultra Thyroid Stim Horm 0.68 mcIU/mL (0.34-5.60)
[2022-03-28] MEDS: methylPREDNISolone SOD SUCC 40 mg/ml 1 ml VIAL IV SCH ×2 (09:58→19:44)
[2022-03-28] MEDS: EMPAGLIFOZIN 10 MG PO SCH (10:40)
[2022-03-28] MEDS: SPIRIVA Respimat (tiotropium) 2.5 mcg/inh Inhaler INH SCH (12:07)
[2022-03-29 06:25] LABS: Hematocrit 37 % (42-52); Hemoglobin 11.8 g/dL (14.0-18.0); Mean Corpuscular HGB Conc 32 g/dL (31-36); Mean Corpuscular Hemoglobin 26 pg (27-31); Mean Corpuscular Volume 82 fL (80-94); Mean Platelet Volume 8.1 fL (7.4-10.4); Platelet Count 225 10^3/uL (150-450); Red Cell Distribution Width 18 % (10-15); White Blood Count 12.6 10^3/uL (3.5-10.8)
[2022-03-29] MEDS: SPIRIVA Respimat (tiotropium) 2.5 mcg/inh Inhaler INH SCH (08:30)
[2022-03-29] MEDS: EMPAGLIFOZIN 10 MG PO SCH (09:01)
[2022-03-29 10:13] LABS: ABS Lymphocytes 0.7 10^3/ul (1.0-4.8); ABS Monocytes 0.5 10^3/ul (0-0.8); ABS Neutrophils 11.4 10^3/ul (1.5-7.7); Lymphocyte % 5.5 %
[2022-03-29 11:30] VITALS: BP 145/64
== END 2022-03-29 14:30 | disposition home or self-care (01) ==
LOC: EDHOLD 20:31 → ED 20:31 → SUATTDRO 23:02 → MED 03-28 13:21
PROVIDERS: ADMIT Hospitalist; ATTEND Internal Medicine

== ENCOUNTER 2022-07-08 18:17 | Observation (INO) ==
[2022-07-08] MEDS ORDERED: Famotidine IV 10 MG/ML 2 ml VIAL (20 mg) IV SLOW PU ONE (19:29)
[2022-07-08] MEDS ORDERED: methylPREDNISolone SOD SUCC 125 mg 2 ML VIAL IV ONE (19:29)
[2022-07-08] MEDS ORDERED: Lactated Ringers 1000 ml BAG 1,000 ML IV ONE (19:36)
[2022-07-08] MEDS ORDERED: EPINEPHrine Anaphylaxis SYR CERTADOSE SYR KIT ONE (19:54)
[2022-07-08] MEDS ORDERED: EPINEPHrine Anaphylaxis SYR CERTADOSE SYR KIT IM ONE (20:00)
[2022-07-08 20:16] LABS: ABS Basophils 0.1 10^3/ul (0-0.2); ABS Eosinophils 0.2 10^3/ul (0-0.6); ABS Lymphocytes 1.8 10^3/ul (1.0-4.8); ABS Monocytes 0.6 10^3/ul (0-0.8); ABS Neutrophils 5.1 10^3/ul (1.5-7.7); Eosinophil % 2.5 %; Hematocrit 37 % (42-52); Hemoglobin 11.6 g/dL (14.0-18.0); Lymphocyte % 23.2 %; Mean Corpuscular HGB Conc 31 g/dL (31-36); Mean Corpuscular Hemoglobin 26 pg (27-31); Mean Corpuscular Volume 82 fL (80-94); Mean Platelet Volume 8.4 fL (7.4-10.4); Nucleated Red Blood Cells % 0.1; Platelet Count 209 10^3/uL (150-450); Red Cell Distribution Width 17 % (10-15); White Blood Count 7.8 10^3/uL (3.5-10.8)
[2022-07-08 20:43] LABS: Albumin 3.6 g/dL (3.2-5.2); Albumin/Globulin Ratio 1.6 (1-3); Calcium 8.8 mg/dL (8.6-10.3); Globulin 2.3 g/dL (2-4); Potassium 4.5 mmol/L (3.5-5.0); Total Bilirubin 0.3 mg/dL (0.2-1.0); Total Protein 5.9 g/dL (6.4-8.9); eGFR CKD-EPI 98.5 (>60)
[2022-07-08] MEDS ORDERED: Dextrose 50% Syringe 50 ml 25 GM/50 ML SYRINGE IV PUSH PRN (22:22)
[2022-07-09 05:41] LABS: ABS Lymphocytes 0.5 10^3/ul (1.0-4.8); ABS Monocytes 0.1 10^3/ul (0-0.8); ABS Neutrophils 8.3 10^3/ul (1.5-7.7); Hematocrit 37 % (42-52); Lymphocyte % 5.3 %; Mean Corpuscular HGB Conc 32 g/dL (31-36); Mean Corpuscular Hemoglobin 26 pg (27-31); Mean Corpuscular Volume 81 fL (80-94); Mean Platelet Volume 7.9 fL (7.4-10.4); Platelet Count 186 10^3/uL (150-450); Red Blood Count 4.59 10^6 /uL (4.18-5.48); Red Cell Distribution Width 17 % (10-15); White Blood Count 8.9 10^3/uL (3.5-10.8)
[2022-07-09 06:32] LABS: Albumin 3.8 g/dL (3.2-5.2); Albumin/Globulin Ratio 1.7 (1-3); Calcium 9.1 mg/dL (8.6-10.3); Globulin 2.3 g/dL (2-4); Potassium 4.4 mmol/L (3.5-5.0); Total Bilirubin 0.4 mg/dL (0.2-1.0); Total Protein 6.1 g/dL (6.4-8.9); eGFR CKD-EPI 96.9 (>60)
[2022-07-09] MEDS ORDERED: SPIRIVA Respimat (tiotropium) 2.5 mcg/inh Inhaler INH SCH (09:00)
[2022-07-09] MEDS ORDERED: Aspirin EC 81 mg TAB.EC (enteric coated) PO SCH (09:00)
[2022-07-09 11:32] VITALS: BP 144/49
[2022-07-11 21:56] LABS: Anaplasma phagocytophilum Negative (Negative); B. miyamotoi PCR, B Negative (Negative); Babesia divergens/MO-1 Negative (Negative); Babesia ducani Negative (Negative); Ehrlichia chaffeensis Negative (Negative); Ehrlichia ewingii/canis Negative (Negative); Ehrlichia muris eauclairensis Negative (Negative)
== END 2022-07-09 11:43 | disposition home or self-care (01) ==
LOC: EDHOLD 18:17 → ED 18:17 → EDHOLD 07-09 11:29 → UNDODISOB 07-10 09:00
PROVIDERS: ADMIT Internal Medicine; ATTEND Internal Medicine